=== PATIENT | male | born 1955 | race Caucasian/White ===

== ENCOUNTER → 2020-05-14 12:49 | Outpatient (BNVA) | payer OTHER, SELFPAY | PROVIDERS: PCP Nurse Practitioner Family; Referring Provider Nurse Practitioner Family; Visit Provider Dietitian, Registered | DX: Z76.89 Persons encountering health services in other specified circumstances (principal) ==

== ENCOUNTER 2020-06-02 13:20 | Outpatient (REF) | payer OTHER, SELFPAY | END 2020-06-02 13:21 | disposition home or self-care (01) | LOC: HO.RESP 13:20 | PROVIDERS: Visit Provider Hospitalist | DX: J45.909 Unspecified asthma, uncomplicated (principal) | CPT/HCPCS: 94010 ==

== ENCOUNTER → 2020-06-16 09:12 | Outpatient (BNVA) | payer OTHER, SELFPAY | PROVIDERS: Visit Provider Internal Medicine Endocrinology, Diabetes & Metabolism | DX: E11.9 Type 2 diabetes mellitus without complications (principal); I10 Essential (primary) hypertension; E78.5 Hyperlipidemia, unspecified | CPT/HCPCS: 99212 ==

== ENCOUNTER 2020-06-22 12:18 | Outpatient (REF) | payer OTHER, SELFPAY ==
[2020-06-22 14:18] LABS: Estimated Average Glucose 120 mg/dL; Hemoglobin A1c % 5.8 %
[2020-06-22 14:20] LABS: Mean Corpuscular HGB Conc 32.6 g/dl (31.0-36.0); Mean Corpuscular Hemoglobin 30.2 pg (27.0-33.0); Mean Corpuscular Volume 92.7 fL (80-98); Mean Platelet Volume 9.8 fL (9.4-12.4); Platelet Count 185 X10*3/uL (160-400); Red Blood Count 4.64 X10*6/uL (4.60-5.80); Red Cell Distribution Width 12.5 % (11.0-16.0); White Blood Count 6.3 X10*3/uL (4.8-10.8)
[2020-06-22 14:46] LABS: Alanine Aminotransferase 23 U/L (0-40); Albumin Level 4.4 g/dL (3.5-5.0); Alkaline Phosphatase 64 U/L (39-117); Anion Gap 12 (12-20); Aspartate Amino Transferase 31 U/L (5-37); Bilirubin Total 0.8 mg/dL (0.0-1.0); Blood Urea Nitrogen 15 mg/dL (9-16); Calcium 8.6 mg/dL (8.4-10.2); Carbon Dioxide 24 mmol/L (22-29); Chloride 107 mmol/L (96-108); Cholesterol 169 mg/dL; Estimated Glomerular Filt Rate > 60; Glucose Fasting 99 mg/dL (60-99); HDL Cholesterol 61 mg/dL; LDL Cholesterol Calculated 85 mg/dl; Potassium 4.2 mmol/l (3.3-5.1); Sodium 139 mmol/L (135-145); Total Protein 6.9 g/dL (6.5-8.0); Triglycerides 118 mg/dL
[2020-06-22 14:51] LABS: Creatinine Urine 235.15 mg/dL; Microalbum/Creatinine Ratio Ur 2.9 ug/mg cr
[2020-06-22 14:55] LABS: Free T4 (Free Thyroxine) 0.91 ng/dL (0.71-1.85)
[2020-06-22 15:21] LABS: Vitamin B12 605 pg/mL (200-900)
[2020-06-23 08:06] LABS: LDL Cholesterol Direct 94 mg/dL (<100)
== END 2020-06-22 12:19 | disposition home or self-care (01) ==
LOC: HO.10HDL 12:18
PROVIDERS: Visit Provider Internal Medicine Endocrinology, Diabetes & Metabolism
DX: E11.9 Type 2 diabetes mellitus without complications (principal)
CPT/HCPCS: 36415; 80053; 80061; 82043; 82607; 83036; 83721; 84439; 84443; 85027

== ENCOUNTER 2020-09-03 13:00 | Outpatient (REF) | payer OTHER, SELFPAY ==
--- NOTE | 2020-09-03 13:36 | XR_ITS ---
EXAMINATION: XR CHEST CLINICAL INFORMATION: COPD. COMPARISON: None TECHNIQUE: 2 views of the chest were obtained. FINDINGS: Minimal linear markings are seen in the right middle lobe and lingula. The upper lung almonte are clear. The heart shows coronary arterial stent anteriorly without other significant abnormality. XR/XR chest 2V IMPRESSION: No acute cardiopulmonary process.
== END 2020-09-03 13:01 | disposition home or self-care (01) ==
LOC: HO.XRAY 13:00
PROVIDERS: PCP Nurse Practitioner Family; Visit Provider Hospitalist
DX: J44.0 Chronic obstructive pulmonary disease with (acute) lower respiratory infection (principal); J45.40 Moderate persistent asthma, uncomplicated; J30.9 Allergic rhinitis, unspecified; G47.33 Obstructive sleep apnea (adult) (pediatric); Z99.89 Dependence on other enabling machines and devices
CPT/HCPCS: 71046; 99212

== ENCOUNTER → 2020-09-15 10:55 | Outpatient (BNVA) | payer OTHER, SELFPAY | PROVIDERS: PCP Nurse Practitioner Family; Visit Provider Internal Medicine Endocrinology, Diabetes & Metabolism | DX: E11.9 Type 2 diabetes mellitus without complications (principal); I10 Essential (primary) hypertension; E78.5 Hyperlipidemia, unspecified | CPT/HCPCS: 82947; 99212 ==

== ENCOUNTER → 2021-06-24 13:52 | Outpatient (BNVA) | payer OTHER, SELFPAY | PROVIDERS: PCP Nurse Practitioner Family; Visit Provider Hospitalist | DX: J44.0 Chronic obstructive pulmonary disease with (acute) lower respiratory infection (principal); G47.33 Obstructive sleep apnea (adult) (pediatric); J30.9 Allergic rhinitis, unspecified; Z99.89 Dependence on other enabling machines and devices | CPT/HCPCS: 99212 ==

== ENCOUNTER → 2021-10-04 13:55 | Outpatient (BNVA) | payer OTHER, SELFPAY | PROVIDERS: PCP Pediatrics; Visit Provider Internal Medicine Endocrinology, Diabetes & Metabolism | DX: E11.649 Type 2 diabetes mellitus with hypoglycemia without coma (principal) | CPT/HCPCS: 82947; 83036; 99212 ==

== ENCOUNTER 2021-10-18 07:51 | Outpatient (REF) | payer OTHER, SELFPAY ==
[2021-10-18 08:37] LABS: Glucose Random 113 mg/dL (60-115)
[2021-10-18 09:57] LABS: Cortisol Random < 1.0 ug/dL
== END 2021-10-18 07:52 | disposition home or self-care (01) ==
LOC: HO.LAB 07:51
PROVIDERS: PCP Pediatrics; Visit Provider Internal Medicine Endocrinology, Diabetes & Metabolism
DX: E16.2 Hypoglycemia, unspecified (principal)
CPT/HCPCS: 36415; 82533; 82947

== ENCOUNTER 2021-10-21 07:35 | Outpatient (REF) | payer OTHER, SELFPAY ==
[2021-10-23 16:06] LABS: Cortisol 30 Minute 11.5 mcg/dL; Cortisol 30 Minute Time 847; Cortisol 60 Minute 14.3 mcg/dL; Cortisol 60 Minute Time 3 915; Cortisol Baseline 2.4 mcg/dL; Cortisol Baseline Time 1 816
[2021-10-24 15:02] LABS: Adrenocorticotropic Hormone 84 pg/mL (6-50)
== END 2021-10-21 07:36 | disposition home or self-care (01) ==
LOC: HO.MDS 07:35
PROVIDERS: Visit Provider Internal Medicine Endocrinology, Diabetes & Metabolism
DX: E16.2 Hypoglycemia, unspecified (principal)
CPT/HCPCS: 36415; 82024; 82533; 96374; J0834

== ENCOUNTER 2021-10-27 07:48 | Outpatient (REF) | payer OTHER, SELFPAY ==
[2021-10-27 10:04] LABS: Cortisol Random < 1.0 ug/dL
[2021-10-28 07:01] LABS: DHEA Sulfate 10 mcg/dL (20-217)
[2021-10-31 16:01] LABS: Adrenocorticotropic Hormone 62 pg/mL (6-50)
[2021-11-02 15:07] LABS: Renin 2.93 ng/mL/h (0.25-5.82)
[2021-11-03 16:30] LABS: 21 Hydroxylase Antibody NEGATIVE (NEGATIVE)
== END 2021-10-27 07:49 | disposition home or self-care (01) ==
LOC: HO.LAB 07:48
PROVIDERS: PCP Pediatrics; Visit Provider Internal Medicine Endocrinology, Diabetes & Metabolism
DX: E27.40 Unspecified adrenocortical insufficiency (principal)
CPT/HCPCS: 36415; 82024; 82088; 82533; 82627; 83519; 84244

== ENCOUNTER 2021-11-16 07:35 | Outpatient (REF) | payer OTHER, SELFPAY ==
[2021-11-16 09:23] LABS: Anion Gap 13 (12-20); Blood Urea Nitrogen 17 mg/dL (9-16); Calcium 9.1 mg/dL (8.4-10.2); Carbon Dioxide 22 mmol/L (22-29); Chloride 110 mmol/L (96-108); Estimated Glomerular Filt Rate > 60; Glucose Random 117 mg/dL (60-115); Potassium 3.9 mmol/L (3.3-5.1); Sodium 141 mmol/L (135-145)
== END 2021-11-16 07:36 | disposition home or self-care (01) ==
LOC: HO.LAB 07:35
PROVIDERS: PCP Pediatrics; Visit Provider Internal Medicine Endocrinology, Diabetes & Metabolism
DX: E27.40 Unspecified adrenocortical insufficiency (principal)
CPT/HCPCS: 36415; 80048

== ENCOUNTER → 2021-11-18 15:01 | Outpatient (BNVA) | payer OTHER, SELFPAY | PROVIDERS: PCP Pediatrics; Visit Provider Internal Medicine Endocrinology, Diabetes & Metabolism | DX: E27.40 Unspecified adrenocortical insufficiency (principal) | CPT/HCPCS: 99212 ==

== ENCOUNTER 2021-12-01 14:05 | Outpatient (REF) | payer OTHER, SELFPAY ==
--- NOTE | ~2021-12-01 | CT_ITS ---
EXAMINATION: CT ABDOMEN WITHOUT AND WITH CONTRAST CLINICAL INFORMATION: Adrenocortical insufficiency. COMPARISON: None TECHNIQUE: Contiguous axial thin section helical images of the abdomen were performed before and after the administration of oral contrast and 85 mL of Omnipaque 350 intravenous contrast. The data set was reformatted in the coronal and sagittal planes and reviewed on an independent workstation. This CT examination was performed using dose optimization techniques as appropriate, variously including the following: *Automated exposure control *Adjustment of mA and/or kV according to patient size (this includes techniques or standardized protocols for targeted exams where dose is matched to indication/reason for exam; i.e. extremities or head) *Use of iterative reconstruction technique DLP: 548 mGy-cm FINDINGS: LUNG BASES: There is bibasilar dependent atelectasis. LIVER, GALLBLADDER, AND BILIARY TREE: The liver is normal size, contour and normal density. No focal lesions or intrahepatic ductal dilatation seen. The gallbladder appears unremarkable without any radiopaque calculi or wall thickening. PANCREAS: The pancreas is homogeneous in density and normal size. No focal lesion seen. SPLEEN: Unremarkable. ADRENAL GLANDS AND KIDNEYS: Bilateral adrenal glands normal. No focal lesion seen. Both kidney nephrograms are symmetrical with normal cortical thickening. No radiopaque calculi, enhancing renal mass or hydronephrosis seen. There is nonspecific mild perinephric stranding. BOWEL LOOPS: The small bowel loops are normal caliber. There is scattered stool seen throughout the colon without any significant distention. Appendix is normal caliber. No inflammatory process seen. LYMPH NODES: There are no abnormal retroperitoneal lymph nodes or mass. No focal lesion seen at the aortic bifurcation. VASCULAR: There is arthrosclerotic calcification of abdominal aorta without aneurysmal dilatation. BONES: There is moderate ventral spondylosis lower dorsal spine. No aggressive lytic or sclerotic process. CT/CT abdomen wo/w con IMPRESSION: Symmetrical normal-appearing adrenal glands. No retroperitoneal mass or lymphadenopathy. Fleischner guidelines were followed.
[2021-12-01] MEDS: iohexoL 350 MG/ML 100 ML INFUS..BTL IV (15:45)
== END 2021-12-01 14:06 | disposition home or self-care (01) ==
LOC: HO.CT 14:05
PROVIDERS: PCP Pediatrics; Visit Provider Internal Medicine Endocrinology, Diabetes & Metabolism
DX: E27.40 Unspecified adrenocortical insufficiency (principal)
CPT/HCPCS: 74170; Q9967

== ENCOUNTER 2022-02-23 11:21 | Outpatient (REF) | payer OTHER, SELFPAY ==
[2022-02-23 11:42] LABS: MANUAL DIFF FLAG NO
[2022-02-23 12:19] LABS: Basophils Percent Auto 0.4 % (0-2); Eosinophils Absolute Auto 0.2 X10*3/uL (0.0-0.4); Eosinophils Percent Auto 2.1 % (0-4); Hematocrit 42.8 % (42.0-52.0); Hemoglobin 13.9 g/dl (14.0-18.0); Imm Gran Abs Auto 0.04 X10*3/uL (0.00-0.03); Imm Gran Pct Auto 0.5 % (0.0-0.4); Lymphocytes Absolute Auto 2.2 X10*3/uL (1.2-4.9); Lymphocytes Percent Auto 30.5 % (20-40); Mean Corpuscular HGB Conc 32.5 g/dl (31.0-36.0); Mean Corpuscular Hemoglobin 29.6 pg (27.0-33.0); Mean Corpuscular Volume 91.3 fL (80.0-98.0); Monocytes Percent Auto 13.7 % (2-11); Neutrophils Absolute Auto 3.9 x10*3/uL (2.0-8.3); Neutrophils Percent Auto 52.8 % (45-73); Platelet Count 151 X10*3/uL (160-400); Red Blood Count 4.69 X10*6/uL (4.60-5.80); Red Cell Distribution Width 12.9 % (11.0-16.0); White Blood Count 7.3 X10*3/uL (4.8-10.8)
[2022-02-23 12:59] LABS: Erythrocyte Sedimentation Rate 4 MM/HR (0-15)
[2022-02-25 21:33] LABS: IgA 176 mg/dL (70-320); IgG 702 mg/dL (600-1540); IgM 181 mg/dL (50-300)
== END 2022-02-23 11:22 | disposition home or self-care (01) ==
LOC: HO.LAB 11:21
PROVIDERS: PCP Pediatrics; Visit Provider Hospitalist
DX: J44.0 Chronic obstructive pulmonary disease with (acute) lower respiratory infection (principal); G47.33 Obstructive sleep apnea (adult) (pediatric); J30.9 Allergic rhinitis, unspecified; Z99.89 Dependence on other enabling machines and devices
CPT/HCPCS: 36415; 82784; 82785; 85025; 85652; 86003; 99212

== ENCOUNTER → 2022-06-14 14:21 | Outpatient (BNVA) | payer OTHER, SELFPAY | PROVIDERS: PCP Pediatrics; Visit Provider Internal Medicine Endocrinology, Diabetes & Metabolism | DX: E27.40 Unspecified adrenocortical insufficiency (principal) | CPT/HCPCS: 82947; 83036; 99212 ==

== ENCOUNTER 2022-06-19 10:53 | Outpatient (REF) | payer OTHER, SELFPAY ==
[2022-06-19 13:01] LABS: Anion Gap 16 (12-20); Blood Urea Nitrogen 10 mg/dL (9-16); Calcium 9.1 mg/dL (8.4-10.2); Carbon Dioxide 23 mmol/L (22-29); Chloride 108 mmol/L (96-108); Estimated Glomerular Filt Rate > 60; Glucose Random 92 mg/dL (60-115); Potassium 4.1 mmol/L (3.3-5.1); Sodium 143 mmol/L (135-145)
[2022-06-26 06:27] LABS: Renin 0.25 ng/mL/h (0.25-5.82)
== END 2022-06-19 10:54 | disposition home or self-care (01) ==
LOC: HO.LAB 10:53
PROVIDERS: Visit Provider Internal Medicine Endocrinology, Diabetes & Metabolism
DX: E27.40 Unspecified adrenocortical insufficiency (principal)
CPT/HCPCS: 36415; 80048; 84244

== ENCOUNTER → 2022-07-04 14:03 | Outpatient (REF) | payer OTHER, SELFPAY | LOC: HO.SL 14:03 | PROVIDERS: Visit Provider Hospitalist | DX: G47.33 Obstructive sleep apnea (adult) (pediatric) (principal); Z99.89 Dependence on other enabling machines and devices | CPT/HCPCS: 95806 ==

== ENCOUNTER 2022-07-13 10:10 | Outpatient (REF) | payer OTHER, SELFPAY ==
--- NOTE | ~2022-07-13 | XR_ITS ---
EXAMINATION: XR CHEST CLINICAL INFORMATION: Dyspnea COMPARISON: 09/03/2020 TECHNIQUE: 2 views of the chest were obtained. FINDINGS: The lungs are well expanded. There is no focal consolidation, edema, or effusion. No pneumothorax. The cardiomediastinal silhouette is within normal limits. No acute osseous abnormality. Degenerative changes noted in the spine. XR/XR chest 2V IMPRESSION: No acute pulmonary finding.
== END 2022-07-13 10:11 | disposition home or self-care (01) ==
LOC: HO.XRAY 10:10
PROVIDERS: Visit Provider Hospitalist
DX: R06.00 Dyspnea, unspecified (principal); J44.0 Chronic obstructive pulmonary disease with (acute) lower respiratory infection; G47.33 Obstructive sleep apnea (adult) (pediatric); Z99.89 Dependence on other enabling machines and devices; Z87.891 Personal history of nicotine dependence
CPT/HCPCS: 71046; 99212

== ENCOUNTER 2022-07-19 07:33 | Outpatient (REF) | payer OTHER, SELFPAY ==
[2022-07-20 12:49] LABS: Adrenocorticotropic Hormone 23 pg/mL (6-50)
[2022-07-23 14:19] LABS: Cortisol 30 Minute 8.4 mcg/dL; Cortisol 60 Minute 9.7 mcg/dL; Cortisol Baseline 2.2 mcg/dL
== END 2022-07-19 07:34 | disposition home or self-care (01) ==
LOC: HO.MDS 07:33
PROVIDERS: Visit Provider Internal Medicine Endocrinology, Diabetes & Metabolism
DX: E27.40 Unspecified adrenocortical insufficiency (principal)
CPT/HCPCS: 36415; 82024; 82533; 96374; J0834

== ENCOUNTER → 2022-09-11 21:05 | Outpatient (REF) | payer OTHER, SELFPAY | LOC: HO.SL 21:05 | PROVIDERS: PCP Pediatrics; Visit Provider Hospitalist | DX: G47.33 Obstructive sleep apnea (adult) (pediatric) (principal) | CPT/HCPCS: 95810 ==

== ENCOUNTER 2022-09-15 09:32 | Outpatient (REF) | payer OTHER, SELFPAY ==
--- NOTE | ~2022-09-15 | XR_ITS ---
EXAMINATION: XR CHEST CLINICAL INFORMATION: Chest pain COMPARISON: Chest x-ray 07/13/2022 TECHNIQUE: 2 views of the chest were obtained. FINDINGS: Cardiac silhouette is normal in size. The lungs are adequately aerated. There is similar mild asymmetric elevation of the right hemidiaphragm. Subtle linear opacity of the right lung base is most suggestive of atelectasis. No pleural effusion or pneumothorax. Degenerative changes of the spine. XR/XR chest 2V IMPRESSION: Suspected right basilar atelectasis.
[2022-09-15 10:19] LABS: MANUAL DIFF FLAG NO
[2022-09-15 10:46] LABS: D Dimer High Sensitivity 784 NG/ML
[2022-09-15 10:47] LABS: Basophils Percent Auto 0.5 % (0-2); Eosinophils Absolute Auto 0.1 X10*3/uL (0.0-0.4); Eosinophils Percent Auto 1.8 % (0-4); Hematocrit 39.6 % (42.0-52.0); Hemoglobin 13.3 g/dl (14.0-18.0); Imm Gran Abs Auto 0.04 X10*3/uL (0.00-0.03); Imm Gran Pct Auto 0.6 % (0.0-0.4); Lymphocytes Absolute Auto 1.9 X10*3/uL (1.2-4.9); Lymphocytes Percent Auto 30.4 % (20-40); Mean Corpuscular HGB Conc 33.6 g/dl (31.0-36.0); Mean Corpuscular Volume 92.3 fL (80.0-98.0); Monocytes Absolute Auto 0.8 X10*3/uL (0.1-1.2); Neutrophils Absolute Auto 3.3 x10*3/uL (2.0-8.3); Neutrophils Percent Auto 53.7 % (45-73); Platelet Count 121 X10*3/uL (160-400); Red Blood Count 4.29 X10*6/uL (4.60-5.80); Red Cell Distribution Width 13.2 % (11.0-16.0); White Blood Count 6.2 X10*3/uL (4.8-10.8)
[2022-09-15 11:02] LABS: Anion Gap 14 (12-20); Blood Urea Nitrogen 15 mg/dL (9-16); Carbon Dioxide 21 mmol/L (22-29); Chloride 112 mmol/L (96-108); Estimated Glomerular Filt Rate > 60; Glucose Random 100 mg/dL (60-115); Potassium 3.7 mmol/L (3.3-5.1); Sodium 143 mmol/L (135-145)
[2022-09-15 11:28] LABS: Erythrocyte Sedimentation Rate 7 MM/HR (0-15)
== END 2022-09-15 09:33 | disposition home or self-care (01) ==
LOC: HO.LAB 09:32
PROVIDERS: PCP Pediatrics; Visit Provider Hospitalist
DX: G47.33 Obstructive sleep apnea (adult) (pediatric) (principal); R06.00 Dyspnea, unspecified; R07.9 Chest pain, unspecified; J45.909 Unspecified asthma, uncomplicated; Z99.89 Dependence on other enabling machines and devices; R78.89 Finding of other specified substances, not normally found in blood
CPT/HCPCS: 36415; 71046; 80048; 84484; 85025; 85379; 85652; 99212

== ENCOUNTER 2022-09-19 13:25 | Outpatient (REF) | payer OTHER, SELFPAY ==
--- NOTE | ~2022-09-19 | CT_ITS ---
EXAMINATION: CT ANGIOGRAM OF THE CHEST WITH AND WITHOUT CONTRAST (CT PULMONARY ANGIOGRAM FOR PE) CLINICAL INFORMATION: Reason for Exam R07.9 - Chest pain, unspecified COMPARISON: None TECHNIQUE: Prior to contrast administration, noncontrast localization images were obtained. Subsequently, multidetector volumetric imaging was performed from the thoracic inlet to below the diaphragms following the administration of 65 mL Omnipaque 350 intravenous contrast. No contrast reaction reported Sagittal, coronal, and MIP oblique sagittal reformatted images were obtained on the CT workstation, uploaded to PACS, and reviewed. This CT examination was performed using dose optimization techniques as appropriate, variously including the following: *Automated exposure control *Adjustment of mA and/or kV according to patient size (this includes techniques or standardized protocols for targeted exams where dose is matched to indication/reason for exam; i.e. extremities or head) *Use of iterative reconstruction technique Total exam dose-length product 140 mGy-cm FINDINGS: QUALITY OF STUDY/CONTRAST BOLUS: Satisfactory. PULMONARY ARTERIES: No central or segmental pulmonary emboli. THORACIC AORTA: No aneurysm or dissection. There is nonocclusive calcified plaque within the aortic arch. LUNG: Central airways are patent. No significant bronchial wall thickening is seen. No bronchiectasis. There are moderate changes of centrilobular and paraseptal emphysema seen bilaterally. No confluent parenchymal disease is seen. There are some scattered regions of linear scar present. No suspicious lung masses appreciated. PLEURA: No pleural effusion or pneumothorax. MEDIASTINUM: Normal heart size. No pericardial effusion. No hilar or mediastinal lymphadenopathy. No evidence of septal bowing or right heart strain. CORONARY ARTERY CALCIFICATION: Present CHEST WALL/AXILLA: No axillary or internal mammary lymphadenopathy. OSSEOUS STRUCTURES: No acute or suspicious osseous abnormality. There is a sclerotic bone island seen posterior right seventh rib. UPPER ABDOMEN: Unremarkable. No reflux of contrast into the hepatic veins to suggest elevated right heart pressures. CT/CT angio chest PE protocol IMPRESSION: No evidence of acute pulmonary artery embolus. No evidence of thoracic aortic aneurysm or dissection. Emphysematous change. VTE: negative
[2022-09-19] MEDS: iohexoL 350 MG/ML 100 ML INFUS..BTL IV (14:02)
== END 2022-09-19 13:26 | disposition home or self-care (01) ==
LOC: HO.CT 13:25
PROVIDERS: PCP Pediatrics; Visit Provider Hospitalist
DX: R07.9 Chest pain, unspecified (principal); R06.00 Dyspnea, unspecified; R78.89 Finding of other specified substances, not normally found in blood
CPT/HCPCS: 71275; Q9967

== ENCOUNTER → 2022-10-26 13:10 | Outpatient (BNVA) | payer OTHER, SELFPAY | PROVIDERS: PCP Pediatrics; Visit Provider Internal Medicine Endocrinology, Diabetes & Metabolism | DX: E27.40 Unspecified adrenocortical insufficiency (principal) | CPT/HCPCS: 99212 ==

== ENCOUNTER → 2022-12-04 09:39 | Outpatient (BNVA) | payer OTHER, SELFPAY | PROVIDERS: PCP Pediatrics; Visit Provider Hospitalist | DX: J44.0 Chronic obstructive pulmonary disease with (acute) lower respiratory infection (principal); J45.40 Moderate persistent asthma, uncomplicated; G47.33 Obstructive sleep apnea (adult) (pediatric); R06.00 Dyspnea, unspecified; R07.89 Other chest pain; E27.40 Unspecified adrenocortical insufficiency; I82.409 Acute embolism and thrombosis of unspecified deep veins of unspecified lower extremity; Z99.89 Dependence on other enabling machines and devices | CPT/HCPCS: 99212 ==

== ENCOUNTER 2023-05-01 12:48 | Outpatient (AMB) | payer OTHER, SELFPAY ==
[2023-05-01 12:50] VITALS: BP 104/80; PULSE 77; BMI 31.2
--- NOTE | 2023-05-01 12:50 | A.OFFVIS_ITS ---
Intake Vital Signs 05/01/23 12:50 Height 5 ft 6 in Weight 193 lb 9.054 oz BMI 31.2 BP 104/80 Blood Pressure Location Lt brachial Position Sitting Pulse 77 Pulse Source Pulse Oximeter Intake Visit Reasons: f/u adrenal insuffiency/Confirmed Intake Note: Patient present today for Adrenal insufficiency. Upper Doubler Required: Yes Upper Doubler Language: Moroccan Accompanied by: Self / Same As Patient Allergies ibuprofen Allergy (Mild, Verified 05/01/23 12:55) Rash penicillin V Allergy (Mild, Verified 05/01/23 12:55) Rash Medication List - Last Reconciled 05/01/23 by Pepe Marshall MD albuterol sulfate 2.5 mg (3 mL) inhalation Q6H PRN albuterol sulfate 90 mcg/actuation 2 puffs PO Q6H PRN apixaban (Eliquis) 5 mg PO BID aspirin (Adult Aspirin Regimen) 81 mg PO DAILY blood sugar diagnostic (FreeStyle Lite Strips) 1 strip miscellaneous BID 90 days blood-glucose meter (Freestyle InsuLinx meter) As directed budesonide-formoterol 160-4.5 mcg/actuation (Symbicort) 2 puffs inhalation BID 30 days buwjuxxihs-rfiaqcgc-iqqtdwqefi 160-9-4.8 mcg/actuation (Breztri Aerosphere) inha lations inhalation cholecalciferol (vitamin D3) (Vitamin D3) 25 mcg PO DAILY CPAP (CPAP Machine/Device) As directed diclofenac sodium 1% grams topical diphenhydramine HCl (Banophen) 25 mg PO Q4H PRN fludrocortisone 0.1 mg PO DAILY fluticasone propionate 110 mcg/actuation 2 puffs PO BID fluticasone propionate 50 mcg/actuation 2 sprays intranasal DAILY 30 days hydrocortisone orally; 2 tablets in the morning 1 tablet in the evening hydrocortisone sod succ (PF) (Solu-Cortef Act-O-Vial (PF)) 100 mg (2 mL) IM DAILY ipratropium bromide 2 sprays intranasal TID PRN lancets (Accu-Chek Fastclix Lancet Drum) As directed twice daily lancets (FreeStyle Lancets) As directed 2 times a day loratadine (Claritin) 10 mg PO DAILY 90 days lorazepam 0.5 mg PO BID PRN montelukast 10 mg PO BEDTIME omeprazole 20 mg PO DAILY prednisone PO daily; Take 2 tabs daily x 5 days, then 1 tablet daily x 5 days 10 days rosuvastatin 10 mg PO BEDTIME sertraline 100 mg PO DAILY simethicone (Gas Relief (simethicone)) 0 mg PO tamsulosin 0.4 mg PO DAILY tramadol 50 mg PO BID PRN umeclidinium 62.5 mcg/actuation (Incruse Ellipta) 1 inh inhalation DAILY 30 days vitamin B complex 1 cap PO BEDTIME HPI HPI Comments History of Present Illness Details 67 yo male today for fup visit, for primary adrenal insufficency He is feeling well, he has no complaints. More recently, he was diagnosed with primary adrenal insufficiency. He was placed on hydrocortisone 10 mg in the a.m. and 5 mg in the p.m. as well as fludrocortisone 0.1 mg q.d.. No symptoms of adrenal insufficiency except for fatigue Rece Cortrosyn stimulation test continues to show sub maximal cortisol levels Laboratory Tests 10/09/18 10/09/18 10/09/18 08:20 08:20 08:20 Hgb Hct Sodium Potassium BUN Creatinine Estimated GFR Fasting Glucose 103 H Estimat Average Gl ucose Hgb A1c Fingerstic k Hemoglobin A1c % Calcium AST ALT Alkaline Phosphata se Albumin Triglycerides Cholesterol LDL Cholesterol Di rect LDL Cholesterol, C alc HDL Cholesterol Vitamin B12 284 25-OH Vitamin D To mis 29.8 TSH Free T4 Ur Random Creatini ne 189.46 Ur Random Microalb umin < 5.0 Urine Creatinine Urine Microalbumin Microalb/Creat Rat io TNP 06/20/19 06/23/19 06/23/19 12:33 10:45 10:45 Hgb Hct Sodium Potassium BUN Creatinine Estimated GFR Fasting Glucose Estimat Average Gl ucose Hgb A1c Fingerstic k 6.3 Hemoglobin A1c % Calcium AST ALT Alkaline Phosphata se Albumin Triglycerides 125 Cholesterol 156 LDL Cholesterol Di rect 88 LDL Cholesterol, C alc 74 HDL Cholesterol 57 Vitamin B12 25-OH Vitamin D To mis TSH Free T4 Ur Random Creatini ne Ur Random Microalb umin Urine Creatinine Urine Microalbumin Microalb/Creat Rat io 10/09/19 10/09/19 06/22/20 14:45 14:45 12:30 Hgb 14.4 14.0 Hct 41.8 L 43.0 Sodium 139 Potassium 4.2 BUN 13 Creatinine 1.07 Estimated GFR Fasting Glucose Estimat Average Gl ucose Hgb A1c Fingerstic k Hemoglobin A1c % Calcium 9.3 AST ALT Alkaline Phosphata se Albumin Triglycerides Cholesterol LDL Cholesterol Di rect LDL Cholesterol, C alc HDL Cholesterol Vitamin B12 25-OH Vitamin D To mis TSH Free T4 Ur Random Creatini ne Ur Random Microalb umin Urine Creatinine Urine Microalbumin Microalb/Creat Rat io 06/22/20 06/22/20 06/22/20 12:30 12:30 12:30 Hgb Hct Sodium 139 Potassium 4.2 BUN 15 Creatinine 1.16 Estimated GFR > 60 Fasting Glucose Estimat Average Gl ucose 120 Hgb A1c Fingerstic k Hemoglobin A1c % 5.8 Calcium 8.6 AST 31 ALT 23 Alkaline Phosphata se 64 Albumin 4.4 Triglycerides 118 Cholesterol 169 LDL Cholesterol Di rect 94 LDL Cholesterol, C alc 85 HDL Cholesterol 61 Vitamin B12 25-OH Vitamin D To mis TSH 2.20 Free T4 0.91 Ur Random Creatini ne Ur Random Microalb umin Urine Creatinine Urine Microalbumin Microalb/Creat Rat io 06/22/20 06/22/20 12:30 12:30 Hgb Hct Sodium Potassium BUN Creatinine Estimated GFR Fasting Glucose Estimat Average Gl ucose Hgb A1c Fingerstic k Hemoglobin A1c % Calcium AST ALT Alkaline Phosphata se Albumin Triglycerides Cholesterol LDL Cholesterol Di rect LDL Cholesterol, C alc HDL Cholesterol Vitamin B12 605 25-OH Vitamin D To mis TSH Free T4 Ur Random Creatini ne Ur Random Microalb umin Urine Creatinine 235.15 Urine Microalbumin 7.0 Microalb/Creat Rat io 2.9 No sx of adrenal insuffiency or Luigi's . Having a workup for SOB on exertion [facility] Medical History (Updated 12/04/22 @ 10:03 by Geo Martinez MD) DVT (deep venous thrombosis) Adrenal insufficiency Chest discomfort Dyspnea EDUARDO (obstructive sleep apnea) Adrenal cortex hypofunction Hypoglycemia Depression COPD (chronic obstructive pulmonary disease) Dyslipidemia Hypertension CAD (coronary artery disease) Diabetes type 2, controlled Chronic allergic rhinitis EDUARDO on CPAP Asthma Surgical History History of back surgery Hx of percutaneous transluminal coronary angioplasty Family History Father Asthma Mother Heart disease Diabetes Social History Household Members: Spouse Household Members Other:: Alcohol intake: current Alcohol intake frequency: does not drink Patient Tobacco Use Status: Former Tobacco user Quit Date: Over 14 years ago Years Smoked: 34 years Physical Exam Vital Signs: Last Vital Signs Pulse 77 05/01/23 12:50 BP 104/80 05/01/23 12:50 BMI result Body Mass Index 31.2 Assessment & Plan Assessment & Plan (1) Adrenal cortex hypofunction: Code(s): E27.40 - Unspecified adrenocortical insufficiency Plan: This 67-year-old male with a history of primary adrenal insufficiency currently being treated with hydrocortisone 10 mg and 5 mg in the afternoon and fludrocortisone 0.1 mg q.d. The plan is to continue the current regimen. Will check basic metabolic panel and renin level and adjust fludrocortisone accordingly Orders: Orders Basic Metabolic Panel Today E27.40 - Unspecified adrenocortical insufficiency Renin Today E27.40 - Unspecified adrenocortical insufficiency Coding Level of Care Code Est Pt Level 3 (57192) Diagnoses Adrenal cortex hypofunction E27.40
== END 2023-05-01 15:54 | disposition home or self-care (01) ==
PROVIDERS: PCP Pediatrics; Visit Provider Internal Medicine Endocrinology, Diabetes & Metabolism
DX: E27.40 Unspecified adrenocortical insufficiency (principal)
CPT/HCPCS: 99213

== ENCOUNTER → 2023-05-01 12:48 | Outpatient (BNVA) | payer OTHER, SELFPAY | PROVIDERS: Visit Provider Internal Medicine Endocrinology, Diabetes & Metabolism | DX: E27.40 Unspecified adrenocortical insufficiency (principal) | CPT/HCPCS: 99212 ==

== ENCOUNTER 2023-11-13 10:04 | Outpatient (AMB) | payer OTHER, SELFPAY ==
[2023-11-13 10:09] VITALS: PULSE 62; O2SAT 97
--- NOTE | 2023-11-13 10:09 | MHC.OFFVIS ---
Intake Vital Signs 11/13/23 10:09 Height 5 ft 6 in Weight 186 lb BMI 30.0 Pulse 62 Pulse Source Pulse Oximeter Pulse Oximetry (%) 97 Oxygen Delivery Method Room Air Intake Visit Reasons: COPD Medical Claims Representative Required: No Allergies ibuprofen Allergy (Mild, Verified 11/13/23 10:10) Rash penicillin V Allergy (Mild, Verified 11/13/23 10:10) Rash HPI HPI Comments History of Present Illness Details Patient is a 67-year-old gentleman known moderate persistent asthma and EDUARDO on CPAP. He had been controlled on his respiratory medications and his nebulizer, but, he ran out of the medications. He did not have any follow-ups. He has been having worsening shortness of breath and wheezing. He has been waking up short of breath and coughing at nighttime. He has been noticing significant nasal congestion and cough as well. He has been developing increasing shortness of breath due to the chest tightness. Overall he is doing well with his current respiratory regimen increasing Symbicort and ProAir. He did also respond very nicely to the Claritin. He has significant allergies at this time. 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 Otherwise he is doing well. Does have coughing at times intermittently. Has not had to use his rescue inhaler more than twice a week. She was 04/25/2021 the patient is here for pulmonary follow-up visit. He has been having worsening respiratory symptoms. Has been having shortness of breath and chest tightness moderate severity. Also congestion in the chest area with increased mucus production. This has been the case specially since he has not been able to get his maintenance medication. He has responded well to Symbicort in the past. Therefore, will plan to send this SIRENA for him to be able to start respite respiratory therapy. 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 He continues uses CPAP. The CPAP therapy continues to be affecting beneficial. He does use it for more than 4 hours a night. He still waiting to get new supplies as he is waiting for the new mask F30 2 in that is waiting for his [employer] company to approve. 02/23/2022 the patient is here for a pulmonary follow-up visit. Overall he is doing well from a respiratory status. He feels that his respiratory symptoms have dramatically improved after he was diagnosed with adrenal insufficiency and started on therapy. He is now off the Trelegy as he was causing her to have adverse effects and is tolerating just the Flovent just as well. His hoarseness is better. He does have significant nasal congestion. Typically in the morning. We talked about the importance of nasal rinsing prior to putting on the CPAP. Also, having get some allergy testing to address any other allergic reactions. He recently was stung by bee and resulted in significant amount of inflammation. The patient's CPAP therapy has been affecting beneficial. He has been tolerating the therapy well. The F 30 mask has been very comfortable for him. His DME company will have to change due to contracture agreements with his insurance company. 07/13/2022 the patient is here for pulmonary follow-up visit. He complains of worsening dyspnea on exertion. Moderate severity. Mainly with activity. Has been a Symbicort initially. Although, looking at his inhalers he is only taking Flovent in a rescue inhaler. She the rescue inhaler does help him. We did go for brief walking oximetry in the patient did have some difficulty with restlessness and appear to have some audible wheezing. The patient also has been using his CPAP. The CPAP therapy continues to be affecting beneficial. He does use it for more than 4 hours a night. He did have to switch DME companies because of contracture agreements with his insurance company. They did require a repeat sleep study. He did have a home sleep study. Demonstrated an AHI of 2.5 which is not significant. Although at this point I do believe the patient has significant sleep apnea and I do not believe that test was accurate. Therefore the patient will require in-lab study to further address the question of sleep apnea in continue to uses CPAP. The patient will go undergo a chest x-ray and we will try him on Breztri. The the patient already has hoarseness and he does not tolerate powdered inhalers. Will have the patient return after his sleep study. 09/15/2022 the patient is here for a pulmonary follow-up visit. The patient has been having worsening chest tightness and shortness of breath. He has been using the Symbicort twice a day with partial resolution of the symptoms. He also has been using his rescue medication through the nebulizer. He does need a rescue inhaler. The patient also has been using the CPAP. He the CPAP therapy continues to be very affecting beneficial for him. He does have a fullface mask and unfortunately the head gear is broken. He uses the F 30. Unfortunately I do not have want to give him. He does have tape with right now. He did have a sleep study. Waiting for the results. Once the patient gets active with the [employer] company will start getting supplies for his CPAP. The patient does need to continue with PAP therapy at this time. He is also describing some dyspnea and chest pressure on exertion. Explained to him that this may be related to his underlying asthma although we need to consider other etiologies including cardiac or pulmonary vascular conditions. He did have a cardiac stress echo test done about 2 years ago that was reassuring. He denies ever having blood clots. In view of the symptoms I did have him do a brief walking oximetry in his oxygen did drop to the mid 90s. Therefore, have him get some blood work including a D-dimer and also a chest x-ray. If the D-dimer comes back positive the new need a CTA to rule out thromboembolic disease. 12/04/2022 the patient is here for pulmonary follow-up visit. Since we last spoke he did have a CTA that was negative for any pulmonary emboli although his lower extremity Dopplers ordered by his primary care was positive for DVT. He has been on anticoagulation. In the meantime his breathing has improved since being on the anticoagulation which is reassuring. The patient also did get his new APAP. The rest med [employer] 11 is working very well for him. His AHI is down to 0.1. He is using more than 4 hours a night. Typically averaging between 6-7. I did increase the pressure some from 5 cm to 6 cm the minimum pressure and change them maximum pressure to 14 cm. He is tolerating well the therapy has been affecting beneficial. He is also using his inhalers as prescribed. No exacerbations. Has not had to use his rescue inhaler. We did review his CTA no evidence of any pulmonary nodules which is reassuring. He does have moderate degree of emphysema and also has some minimal basilar peripheral scarring. 11/13/2023 the patient is here for a pulmonary follow-up visit. Overall the patient has been doing well. He is status post CABG x3 back in the fall 2022. The surgery went well. He is recovering well from a respiratory status. Also from a cardiac status. He does continue to use his CPAP. CPAP therapy continues to be affecting beneficial. His pressures at the same. He continues to get supplies readily. Patient has a relatively new machine. In addition to that has been using his inhaler therapy. He needs to get refills. I will send him to the pharmacy. He is complaining of increasing allergy symptoms nasal congestion. He did respond to Zyrtec. Will go ahead and send him Astelin nasal spray to see this provides him with some more direct intervention to his nasal passages. Patient understands has a bad taste any has to use it a certain way. In addition to that he had a CT scan of the chest at [facility] back in May 2023 which we personally reviewed. He does have multiple pulmonary nodules 1 that is measuring about 4 mm in size. Has a subsolid component. The patient does need a follow-up sometime in the fall 2023. He will follow-up with me sometime after that CT scan. If the patient has any worsening issues prior to that he will call for an earlier assessment. [facility] Medical History (Updated 11/13/23 @ 21:07 by Geo Martinez MD) Pulmonary nodule DVT (deep venous thrombosis) Adrenal insufficiency Chest discomfort Dyspnea EDUARDO (obstructive sleep apnea) Adrenal cortex hypofunction Hypoglycemia Depression COPD (chronic obstructive pulmonary disease) Dyslipidemia Hypertension CAD (coronary artery disease) Diabetes type 2, controlled Chronic allergic rhinitis EDUARDO on CPAP Asthma Surgical History History of back surgery Hx of percutaneous transluminal coronary angioplasty Family History Father Asthma Mother Heart disease Diabetes Social History Household Members: Spouse Household Members Other:: Alcohol intake: current Alcohol intake frequency: does not drink Patient Tobacco Use Status: Former Tobacco user Quit Date: Over 14 years ago Years Smoked: 34 years Review of Systems Const Denies night sweats ENT Denies change in voice, Denies lip swelling, Denies mouth pain, Reports nasal congestion, Reports nasal discharge and Denies tongue swelling Card Denies chest pain, Denies dyspnea and Reports dyspnea on exertion Resp Denies chest congestion, Reports cough, Denies dyspnea, Reports dyspnea on exertion and Denies wheezing GI Denies abdominal pain Musc Denies no additional complaints Neuro Denies Neuro-related abnormal movements Psych Denies no additional complaints Kenny/Lymph Denies easy bleeding and Denies lymphadenopathy Aller/Immun Denies lip swelling, Denies tongue swelling and Denies wheezing Physical Exam Vital Signs: Last Vital Signs Pulse 62 11/13/23 10:09 Pulse Ox 97 11/13/23 10:09 Oxygen Delivery Method Room Air 11/13/23 10:09 BMI result Body Mass Index 30.0 Const General: alert HEENT General nose exam: Abnormal external nose present and Nasal discharge present Eyes Pupils: Equal, round and reactive pupils present Neck Neck: Yes normal visual inspection, Yes full ROM and Yes no lymphadenopathy Chest Chest palpation & inspection: normal inspection of the chest Resp Effort & Inspection: normal respiratory effort Auscultation: no wheezes and diminished lung sounds Cardio Rate: regular rate Rhythm: regular rhythm Heart sounds: S1 normal heart sound present and S2 normal heart sound present GI Palpation (GI): Soft to palpation and nontender Auscultation: normal bowel sounds General: Yes no CVA tenderness Back/Spine/Pelvis Back: no CVA tenderness Skin General skin exam: rashes and/or lesions noted Neuro Cranial nerves: Yes Equal, round and reactive pupils present Assessment & Plan Assessment & Plan (1) COPD (chronic obstructive pulmonary disease): Code(s): J44.9 - Chronic obstructive pulmonary disease, unspecified Qualifiers: COPD type: COPD with acute lower respiratory infection Qualified Code(s): J44.0 - Chronic obstructive pulmonary disease with (acute) lower respiratory infection Plan: Start Symbicort Continue Singulair Prednisone taper and abx (2) EDUARDO on CPAP: Code(s): G47.33 - Obstructive sleep apnea (adult) (pediatric); Z99.89 - Dependence on other enabling machines and devices Plan: conitnue CPAP therapy (3) Chronic allergic rhinitis: Code(s): J30.9 - Allergic rhinitis, unspecified Plan: anti histamine therapy (4) Dyspnea: Code(s): R06.00 - Dyspnea, unspecified Qualifiers: Dyspnea type: dyspnea on exertion Qualified Code(s): R06.09 - Other forms of dyspnea (5) Adrenal insufficiency: Code(s): E27.40 - Unspecified adrenocortical insufficiency Plan continue Symbicort continue Incruse THEO as needed Continue APAP nightly, adjusted pressures 6-14. Doing very well nasal rinsing start astelin nasal spray fluticasone nasal spray in the morning ipratropium nasal spray as needed CT chest Jun 2024 follow-up in 8-12 months Orders: Orders CT chest wo IV con 06/09/24 R91.1 - Solitary pulmonary nodule Medications: New azelastine administer into each nostril 2 sprays intranasal BID 30 days 30 mL 6RF Coding Level of Care Code Est Pt Level 4 (77353) Diagnoses Chronic obstructive pulmonary disease with acute lower respiratory infection J44.0 COPD type: COPD with acute lower respiratory infection EDUARDO on CPAP G47.33; Z99.89 Chronic allergic rhinitis J30.9 Dyspnea on exertion R06.09 Dyspnea type: dyspnea on exertion Adrenal insufficiency E27.40 Time Spent (min) 17
== END 2023-11-13 10:35 | disposition home or self-care (01) ==
PROVIDERS: PCP Pediatrics; Visit Provider Hospitalist
DX: J44.0 Chronic obstructive pulmonary disease with (acute) lower respiratory infection (principal); G47.33 Obstructive sleep apnea (adult) (pediatric); Z99.89 Dependence on other enabling machines and devices; J30.9 Allergic rhinitis, unspecified; R06.09 Other forms of dyspnea; E27.40 Unspecified adrenocortical insufficiency
CPT/HCPCS: 99214

== ENCOUNTER → 2023-11-13 10:04 | Outpatient (BNVA) | payer OTHER, SELFPAY | PROVIDERS: PCP Pediatrics; Visit Provider Hospitalist | DX: J44.0 Chronic obstructive pulmonary disease with (acute) lower respiratory infection (principal); J30.9 Allergic rhinitis, unspecified; G47.33 Obstructive sleep apnea (adult) (pediatric); Z99.89 Dependence on other enabling machines and devices; R06.09 Other forms of dyspnea; E27.40 Unspecified adrenocortical insufficiency | CPT/HCPCS: 99212 ==

== ENCOUNTER 2024-06-27 13:17 | Outpatient (REF) | payer OTHER, SELFPAY ==
--- NOTE | ~2024-06-27 | CT_ITS ---
EXAMINATION: CT CHEST WITHOUT CONTRAST CLINICAL INFORMATION: Solitary pulmonary nodule. COMPARISON: CT angiogram chest dated September 19, 2022. TECHNIQUE: Multidetector volumetric CT imaging of the chest was done. Axial MIP volume rendering provided. Sagittal and coronal reformatted images were obtained. This CT examination was performed using dose optimization techniques as appropriate, variously including the following: *Automated exposure control *Adjustment of mA and/or kV according to patient size (this includes techniques or standardized protocols for targeted exams where dose is matched to indication/reason for exam; i.e. extremities or head) *Use of iterative reconstruction technique DLP: 160 mGy-cm FINDINGS: Submitted for interpretation on July 15, 2024. There is a patchy pulmonary groundglass in the periphery of the lungs more conspicuous in the lower lung lobes. No gross consolidation, pleural effusion or pneumothorax. 2 mm calcified pulmonary nodules in the periphery of the right upper lobe and left lung base/lower lobe. No bronchiectasis. No honeycombing. Centrilobular and paraseptal emphysematous changes, both upper lobes. Respiratory airways patent. No gross lymphadenopathy, mediastinum or axillary. Sternal wires. Calcified plaques in the coronary arteries and thoracic aorta. Calcified plaques in the origin of the main branches of the thoracic aortic arch. No aneurysm, thoracic aorta. No gross pericardial effusion. Small hiatal hernia. Multilevel cervical thoracic scoliosis. No acute fracture or gross listhesis. Osteopenia versus osteoporosis. Old traumatic deformity and callus formation in the mid sternum. Calcified plaques in the included abdominal aorta the origin of the mesenteric arteries. CT/CT chest wo IV con IMPRESSION: No acute airspace disease. Emphysema. Granulomata, right upper and left lower lobe. Coronary artery disease and atherosclerosis disease. Status post CABG. Multilevel spondylosis. Fleischner guidelines were followed. Electronically signed by: Max Randhawa MD 07/15/2024 01:59 PM EST
== END 2024-06-27 13:18 | disposition home or self-care (01) ==
LOC: HO.CT 13:17
PROVIDERS: PCP Family Medicine; Visit Provider Hospitalist
DX: R91.1 Solitary pulmonary nodule (principal)
CPT/HCPCS: 71250

== ENCOUNTER → 2024-06-27 13:18 | Outpatient (BNV) | payer OTHER, SELFPAY | PROVIDERS: PCP Family Medicine; Visit Provider Radiology Diagnostic Radiology | DX: R91.1 Solitary pulmonary nodule (principal) | CPT/HCPCS: 71250 ==

== ENCOUNTER 2024-07-15 10:56 | Outpatient (AMB) | payer OTHER, SELFPAY ==
[2024-07-15 10:57] VITALS: BP 136/68; PULSE 60; O2SAT 96
--- NOTE | 2024-07-15 10:57 | A.OFFVIS_ITS ---
Vital Signs 07/15/24 10:57 Weight 186 lb 4.65 oz BP 136/68 Blood Pressure Location Rt brachial Position Sitting Pulse 60 Pulse Source Pulse Oximeter Pulse Oximetry (%) 96 Oxygen Delivery Method Room Air Intake Visit Reasons: COPD/CT Follow Up Allergies ibuprofen Allergy (Mild, Verified 07/15/24 11:01) Rash penicillin V Allergy (Mild, Verified 07/15/24 11:01) Rash Medication List - Last Reconciled 07/15/24 by Madeleine Schaefer LPN albuterol sulfate 2.5 mg (3 mL) inhalation Q6H PRN albuterol sulfate 90 mcg/actuation 2 puffs PO Q6H PRN 30 days apixaban (Eliquis) 5 mg PO BID aspirin (Adult Aspirin Regimen) 81 mg PO DAILY azelastine 2 sprays intranasal BID 30 days blood sugar diagnostic (FreeStyle Lite Strips) 1 strip miscellaneous BID 90 days blood-glucose meter (Freestyle InsuLinx meter) As directed byzywpeflu-pggqogey-qsoyclqfbf 160-9-4.8 mcg/actuation (Breztri Aerosphere) inhalations inhalation cholecalciferol (vitamin D3) (Vitamin D3) 25 mcg PO DAILY CPAP (CPAP Machine/Device) As directed diclofenac sodium 1% grams topical diphenhydramine HCl (Banophen) 25 mg PO Q4H PRN fludrocortisone 0.1 mg PO DAILY fluticasone propionate 50 mcg/actuation 2 sprays intranasal DAILY 30 days hydrocortisone orally; 2 tablets in the morning 1 tablet in the evening hydrocortisone sod succ (PF) (Solu-Cortef Act-O-Vial (PF)) 100 mg (2 mL) IM DAILY ipratropium bromide 2 sprays intranasal TID PRN lancets (Accu-Chek Fastclix Lancet Drum) As directed twice daily lancets (FreeStyle Lancets) As directed 2 times a day lorazepam 0.5 mg PO BID PRN montelukast 10 mg PO BEDTIME nebulizers As directed omeprazole 20 mg PO DAILY rosuvastatin 10 mg PO BEDTIME sertraline 100 mg PO DAILY simethicone (Gas Relief (simethicone)) 0 mg PO tamsulosin 0.4 mg PO DAILY HPI Comments Details: Patient is a 68-year-old gentleman known moderate persistent asthma and EDUARDO on CPAP. He had been controlled on his respiratory medications and his nebulizer, but, he ran out of the medications. He did not have any follow-ups. He has been having worsening shortness of breath and wheezing. He has been waking up short of breath and coughing at nighttime. He has been noticing significant nasal congestion and cough as well. He has been developing increasing shortness of breath due to the chest tightness. Overall he is doing well with his current respiratory regimen increasing Symbicort and ProAir. He did also respond very nicely to the Claritin. He has significant allergies at this time. 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 Otherwise he is doing well. Does have coughing at times intermittently. Has not had to use his rescue inhaler more than twice a week. She was 04/25/2021 the patient is here for pulmonary follow-up visit. He has be en having worsening respiratory symptoms. Has been having shortness of breath and chest tightness moderate severity. Also congestion in the chest area with increased mucus production. This has been the case specially since he has not been able to get his maintenance medication. He has responded well to Symbicort in the past. Therefore, will plan to send this SIRENA for him to be able to start respite respiratory therapy. 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 He continues uses CPAP. The CPAP therapy continues to be affecting beneficial. He does use it for more than 4 hours a night. He still waiting to get new supplies as he is waiting for the new mask F30 2 in that is waiting for his [employer] company to approve. 02/23/2022 the patient is here for a pulmonary follow-up visit. Overall he is doing well from a respiratory status. He feels that his respiratory symptoms have dramatically improved after he was diagnosed with adrenal insufficiency and started on therapy. He is now off the Trelegy as he was causing her to have adverse effects and is tolerating just the Flovent just as well. His hoarseness is better. He does have significant nasal congestion. Typically in the morning. We talked about the importance of nasal rinsing prior to putting on the CPAP. Also, having get some allergy testing to address any other allergic reactions. He recently was stung by bee and resulted in significant amount of inflammation. The patient's CPAP therapy has been affecting beneficial. He has been tolerating the therapy well. The F 30 mask has been very comfortable for him. His DME company will have to change due to contracture agreements with his insurance company. 07/13/2022 the patient is here for pulmonary follow-up visit. He complains of worsening dyspnea on exertion. Moderate severity. Mainly with activity. Has been a Symbicort initially. Although, looking at his inhalers he is only taking Flovent in a rescue inhaler. She the rescue inhaler does help him. We did go for brief walking oximetry in the patient did have some difficulty with restlessness and appear to have some audible wheezing. The patient also has been using his CPAP. The CPAP therapy continues to be affecting beneficial. He does use it for more than 4 hours a night. He did have to switch DME companies because of contracture agreements with his insurance company. They did require a repeat sleep study. He did have a home sleep study. Demonstrated an AHI of 2.5 which is not significant. Although at this point I do believe the patient has significant sleep apnea and I do not believe that test was accurate. Therefore the patient will require in-lab study to further address the question of sleep apnea in continue to uses CPAP. The patient will go undergo a chest x- ray and we will try him on Breztri. The the patient already has hoarseness and he does not tolerate powdered inhalers. Will have the patient return after his sleep study. 09/15/2022 the patient is here for a pulmonary follow-up visit. The patient has been having worsening chest tightness and shortness of breath. He has been using the Symbicort twice a day with partial resolution of the symptoms. He also has been using his rescue medication through the nebulizer. He does need a rescue inhaler. The patient also has been using the CPAP. He the CPAP therapy continues to be very affecting beneficial for him. He does have a fullface mask and unfortunately the head gear is broken. He uses the F 30. Unfortunately I do not have want to give him. He does have tape with right now. He did have a sleep study. Waiting for the results. Once the patient gets active with the [employer] company will start getting supplies for his CPAP. The patient does need to continue with PAP therapy at this time. He is also describing some dyspnea and chest pressure on exertion. Explained to him that this may be related to his underlying asthma although we need to consider other etiologies including cardiac or pulmonary vascular conditions. He did have a cardiac stress echo test done about 2 years ago that was reassuring. He denies ever having blood clots. In view of the symptoms I did have him do a brief walking oximetry in his oxygen did drop to the mid 90s. Therefore, have him get some blood work including a D-dimer and also a chest x-ray. If the D-dimer comes back positive the new need a CTA to rule out thromboembolic disease. 12/04/2022 the patient is here for pulmonary follow-up visit. Since we last spoke he did have a CTA that was negative for any pulmonary emboli although his lower extremity Dopplers ordered by his primary care was positive for DVT. He has been on anticoagulation. In the meantime his breathing has improved since being on the anticoagulation which is reassuring. The patient also did get his new APAP. The rest med AirSense 11 is working very well for him. His AHI is down to 0.1. He is using more than 4 hours a night. Typically averaging between 6- 7. I did increase the pressure some from 5 cm to 6 cm the minimum pressure and change them maximum pressure to 14 cm. He is tolerating well the therapy has been affecting beneficial. He is also using his inhalers as prescribed. No exacerbations. Has not had to use his rescue inhaler. We did review his CTA no evidence of any pulmonary nodules which is reassuring. He does have moderate degree of emphysema and also has some minimal basilar peripheral scarring. 11/13/2023 the patient is here for a pulmonary follow-up visit. Overall the patient has been doing well. He is status post CABG x3 back in the fall 2022. The surgery went well. He is recovering well from a respiratory status. Also from a cardiac status. He does continue to use his CPAP. CPAP therapy continues to be affecting beneficial. His pressures at the same. He continues to get supplies readily. Patient has a relatively new machine. In addition to that has been using his inhaler therapy. He needs to get refills. I will send him to the pharmacy. He is complaining of increasing allergy symptoms nasal congestion. He did respond to Zyrtec. Will go ahead and send him Astelin nasal spray to see this provides him with some more direct intervention to his nasal passages. Patient understands has a bad taste any has to use it a certain way. In addition to that he had a CT scan of the chest at [facility] back in May 2023 which we personally reviewed. He does have multiple pulmonary nodules 1 that is measuring about 4 mm in size. Has a subsolid component. The patient does need a follow-up sometime in the fall 2023. He will follow-up with me sometime after that CT scan. If the patient has any worsening issues prior to that he will call for an earlier assessment. 07/15/2024 the patient is here for a pulmonary follow-up visit. Overall he is d oing well. He continues uses CPAP every night. CPAP therapy continues to be affecting beneficial. He does use an F30 mask and he gets his supplies from [employer]. Does been affecting beneficial. In the meantime he does complaint of some dyspnea on exertion. He does have underlying COPD. We did review his last CT scan demonstrating moderate degree of emphysema. Will have him repeat his pulmonary function studies the next visit. In the meantime he has been taking Incruse and has not been using any combination inhalers. Therefore, will switch him from Incruse to Anoro at this time to provide him with the best bronchodilation. Hold off on any inhaled steroids specially with his hoarseness. Follow-up after his PFTs. [facility] Medical History (Updated 11/13/23 @ 21:07 by Geo Martinez MD) Pulmonary nodule DVT (deep venous thrombosis) Adrenal insufficiency Chest discomfort Dyspnea EDUARDO (obstructive sleep apnea) Adrenal cortex hypofunction Hypoglycemia Depression COPD (chronic obstructive pulmonary disease) Dyslipidemia Hypertension CAD (coronary artery disease) Diabetes type 2, controlled Chronic allergic rhinitis EDUARDO on CPAP Asthma Surgical History History of back surgery Hx of percutaneous transluminal coronary angioplasty Family History Father Asthma Mother Heart disease Diabetes Social History Household Members: Spouse Household Members Other:: Alcohol intake: current Alcohol intake frequency: does not drink Patient Tobacco Use Status: Former Tobacco user Years Smoked: 34 years Review of Systems Const Denies night sweats ENT Denies change in voice, Denies lip swelling, Denies mouth pain, Reports nasal congestion, Reports nasal discharge and Denies tongue swelling Card Denies chest pain, Denies dyspnea and Reports dyspnea on exertion Resp Denies chest congestion, Reports cough, Denies dyspnea, Reports dyspnea on exertion and Denies wheezing GI Denies abdominal pain Musc Denies no additional complaints Neuro Denies Neuro-related abnormal movements Psych Denies no additional complaints Kenny/Lymph Denies easy bleeding and Denies lymphadenopathy Aller/Immun Denies lip swelling, Denies tongue swelling and Denies wheezing Physical Exam Vital Signs: Last Vital Signs Pulse 60 07/15/24 10:57 BP 136/68 07/15/24 10:57 Pulse Ox 96 07/15/24 10:57 Oxygen Delivery Method Room Air 07/15/24 10:57 Const General: alert HEENT General nose exam: Abnormal external nose present and Nasal discharge present Eyes Pupils: Equal, round and reactive pupils present Neck Neck: Yes normal visual inspection, Yes full ROM and Yes no lymphadenopathy Chest Chest palpation & inspection: normal inspection of the chest Resp Effort & Inspection: normal respiratory effort Auscultation: no wheezes and diminished lung sounds Cardio Rate: regular rate Rhythm: regular rhythm Heart sounds: S1 normal heart sound present and S2 normal heart sound present GI Palpation (GI): Soft to palpation and nontender Auscultation: normal bowel sounds General: Yes no CVA tenderness Back/Spine/Pelvis Back: no CVA tenderness Skin General skin exam: rashes and/or lesions noted Neuro Cranial nerves: Yes Equal, round and reactive pupils present Assessment & Plan Assessment & Plan (1) COPD (chronic obstructive pulmonary disease): Code(s): J44.9 - Chronic obstructive pulmonary disease, unspecified Category: Medical Qualifiers: COPD type: COPD with acute lower respiratory infection Qualified Code(s): J44.0 - Chronic obstructive pulmonary disease with (acute) lower respiratory infection Plan: Start Symbicort Continue Singulair Prednisone taper and abx (2) EDUARDO on CPAP: Code(s): G47.33 - Obstructive sleep apnea (adult) (pediatric); Z99.89 - Dependence on other enabling machines and devices Category: Medical Plan: conitnue CPAP therapy (3) Chronic allergic rhinitis: Code(s): J30.9 - Allergic rhinitis, unspecified Category: Medical Plan: anti histamine therapy (4) Dyspnea: Code(s): R06.00 - Dyspnea, unspecified Category: Medical Qualifiers: Dyspnea type: dyspnea on exertion Qualified Code(s): R06.09 - Other forms of dyspnea (5) Adrenal insufficiency: Code(s): E27.40 - Unspecified adrenocortical insufficiency Category: Medical Plan stop symbiocrt stop Incruse start Anoro daily THEO as needed Continue APAP nightly, adjusted pressures 6-14. Doing very well, F30 Regional nasal rinsing astelin nasal spray fluticasone nasal spray in the morning ipratropium nasal spray as needed CT chest Jun 2024, awaiting results PFTs in Spring follow-up in 5-6 months Orders: Orders PFT pulmonary function test 3 Months J44.0 - Chronic obstructive pulmonary disease with (acute) lower respiratory infection Medications: New umeclidinium-vilanterol 62.5-25 mcg/actuation (Anoro Ellipta) 1 inh inhalation DAILY 60 ea 11RF J44.89 - Other specified chronic obstructive pulmonary disease Coding Level of Care Code Est Pt Level 4 (53923) Complex EM visit Add On G2211 Diagnoses Chronic obstructive pulmonary disease with acute lower respiratory infection J44.0 COPD type: COPD with acute lower respiratory infection EDUARDO on CPAP G47.33; Z99.89 Chronic allergic rhinitis J30.9 Dyspnea on exertion R06.09 Dyspnea type: dyspnea on exertion Adrenal insufficiency E27.40 Time Spent (min) 17
== END 2024-07-15 11:25 | disposition home or self-care (01) ==
PROVIDERS: PCP Pediatrics; Visit Provider Hospitalist
DX: J44.0 Chronic obstructive pulmonary disease with (acute) lower respiratory infection (principal); G47.33 Obstructive sleep apnea (adult) (pediatric); Z99.89 Dependence on other enabling machines and devices; J30.9 Allergic rhinitis, unspecified; R06.09 Other forms of dyspnea; E27.40 Unspecified adrenocortical insufficiency
CPT/HCPCS: 99214; G2211

== ENCOUNTER → 2024-07-15 10:56 | Outpatient (BNVA) | payer OTHER, SELFPAY | PROVIDERS: PCP Pediatrics; Visit Provider Hospitalist | DX: J44.0 Chronic obstructive pulmonary disease with (acute) lower respiratory infection (principal); J30.9 Allergic rhinitis, unspecified; R06.09 Other forms of dyspnea; G47.33 Obstructive sleep apnea (adult) (pediatric); Z99.89 Dependence on other enabling machines and devices; E27.40 Unspecified adrenocortical insufficiency | CPT/HCPCS: 99212 ==

== ENCOUNTER 2024-08-21 07:38 | Outpatient (REF) | payer OTHER, SELFPAY ==
--- NOTE | 2024-08-21 08:10 | PFT_ITS ---
Flows: FEV1: 89 % of predicted at 2.61 L FVC: 101 % of predicted at 3.82 L FEV1/FVC: 60 % Bronchodilator response: Present in small to medium airways only Volumes: Total lung capacity: 84 % of predicted at 5.24 L Residual volume: 60 % of predicted at 1.28 L Slow vital capacity: 95 % of predicted at 3.95 L Expiratory reserve volume: 60 % of predicted at 0.62 L Diffusion capacity: Moderately decreased Impression: Mild obstructive ventilatory defect with bronchodilator response present in small to medium airways only. Decreased diffusion capacity suggests emphysema. MTDD
== END 2024-08-21 07:39 | disposition home or self-care (01) ==
LOC: HO.RESP 07:38
PROVIDERS: PCP Pediatrics; Visit Provider Hospitalist
DX: J44.0 Chronic obstructive pulmonary disease with (acute) lower respiratory infection (principal)
CPT/HCPCS: 94010; 94640; 94727; 94729

== ENCOUNTER → 2024-08-21 08:10 | Outpatient (BNV) | payer OTHER, SELFPAY | PROVIDERS: PCP Pediatrics; Visit Provider Internal Medicine Pulmonary Disease | DX: J44.0 Chronic obstructive pulmonary disease with (acute) lower respiratory infection (principal) | CPT/HCPCS: 94060; 94727; 94729 ==

== ENCOUNTER 2024-12-09 10:54 | Outpatient (AMB) | payer OTHER, SELFPAY ==
[2024-12-09 10:57] VITALS: BP 158/82; PULSE 46; O2SAT 98; BMI 30.2
--- NOTE | 2024-12-09 10:57 | MHC.OFFVIS ---
Vital Signs 12/09/24 10:57 Height 5 ft 6 in Weight 187 lb 6.287 oz BMI 30.2 BP 158/82 H Blood Pressure Location Lt brachial Position Sitting Pulse 46 L Pulse Source Pulse Oximeter Pulse Oximetry (%) 98 Oxygen Delivery Method Room Air Intake Visit Reasons: COPD Allergies ibuprofen Allergy (Mild, Verified 12/09/24 11:02) Rash penicillin V Allergy (Mild, Verified 12/09/24 11:02) Rash HPI Comments Details: Patient is a 69-year-old gentleman known moderate persistent asthma and EDUARDO on CPAP. He had been controlled on his respiratory medications and his nebulizer, but, he ran out of the medications. He did not have any follow-ups. He has been having worsening shortness of breath and wheezing. He has been waking up short of breath and coughing at nighttime. He has been noticing significant nasal congestion and cough as well. He has been developing increasing shortness of breath due to the chest tightness. Overall he is doing well with his current respiratory regimen increasing Symbicort and ProAir. He did also respond very nicely to the Claritin. He has significant allergies at this time. 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 Otherwise he is doing well. Does have coughing at times intermittently. Has not had to use his rescue inhaler more than twice a week. She was 04/25/2021 the patient is here for pulmonary follow-up visit. He has been having worsening respiratory symptoms. Has been having shortness of breath and chest tightness moderate severity. Also congestion in the chest area with increased mucus production. This has been the case specially since he has not been able to get his maintenance medication. He has responded well to Symbicort in the past. Therefore, will plan to send this SIRENA for him to be able to start respite respiratory therapy. 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 He continues uses CPAP. The CPAP therapy continues to be affecting beneficial. He does use it for more than 4 hours a night. He still waiting to get new supplies as he is waiting for the new mask F30 2 in that is waiting for his [employer] company to approve. 02/23/2022 the patient is here for a pulmonary follow-up visit. Overall he is doing well from a respiratory status. He feels that his respiratory symptoms have dramatically improved after he was diagnosed with adrenal insufficiency and started on therapy. He is now off the Trelegy as he was causing her to have adverse effects and is tolerating just the Flovent just as well. His hoarseness is better. He does have significant nasal congestion. Typically in the morning. We talked about the importance of nasal rinsing prior to putting on the CPAP. Also, having get some allergy testing to address any other allergic reactions. He recently was stung by bee and resulted in significant amount of inflammation. The patient's CPAP therapy has been affecting beneficial. He has been tolerating the therapy well. The F 30 mask has been very comfortable for him. His DME company will have to change due to contracture agreements with his insurance company. 07/13/2022 the patient is here for pulmonary follow-up visit. He complains of worsening dyspnea on exertion. Moderate severity. Mainly with activity. Has been a Symbicort initially. Although, looking at his inhalers he is only taking Flovent in a rescue inhaler. She the rescue inhaler does help him. We did go for brief walking oximetry in the patient did have some difficulty with restlessness and appear to have some audible wheezing. The patient also has been using his CPAP. The CPAP therapy continues to be affecting beneficial. He does use it for more than 4 hours a night. He did have to switch DME companies because of contracture agreements with his insurance company. They did require a repeat sleep study. He did have a home sleep study. Demonstrated an AHI of 2.5 which is not significant. Although at this point I do believe the patient has significant sleep apnea and I do not believe that test was accurate. Therefore the patient will require in-lab study to further address the question of sleep apnea in continue to uses CPAP. The patient will go undergo a chest x-ray and we will try him on Breztri. The the patient already has hoarseness and he does not tolerate powdered inhalers. Will have the patient return after his sleep study. 09/15/2022 the patient is here for a pulmonary follow-up visit. The patient has been having worsening chest tightness and shortness of breath. He has been using the Symbicort twice a day with partial resolution of the symptoms. He also has been using his rescue medication through the nebulizer. He does need a rescue inhaler. The patient also has been using the CPAP. He the CPAP therapy continues to be very affecting beneficial for him. He does have a fullface mask and unfortunately the head gear is broken. He uses the F 30. Unfortunately I do not have want to give him. He does have tape with right now. He did have a sleep study. Waiting for the results. Once the patient gets active with the [employer] company will start getting supplies for his CPAP. The patient does need to continue with PAP therapy at this time. He is also describing some dyspnea and chest pressure on exertion. Explained to him that this may be related to his underlying asthma although we need to consider other etiologies including cardiac or pulmonary vascular conditions. He did have a cardiac stress echo test done about 2 years ago that was reassuring. He denies ever having blood clots. In view of the symptoms I did have him do a brief walking oximetry in his oxygen did drop to the mid 90s. Therefore, have him get some blood work including a D-dimer and also a chest x-ray. If the D-dimer comes back positive the new need a CTA to rule out thromboembolic disease. 12/04/2022 the patient is here for pulmonary follow-up visit. Since we last spoke he did have a CTA that was negative for any pulmonary emboli although his lower extremity Dopplers ordered by his primary care was positive for DVT. He has been on anticoagulation. In the meantime his breathing has improved since being on the anticoagulation which is reassuring. The patient also did get his new APAP. The rest med AirSense 11 is working very well for him. His AHI is down to 0.1. He is using more than 4 hours a night. Typically averaging between 6-7. I did increase the pressure some from 5 cm to 6 cm the minimum pressure and change them maximum pressure to 14 cm. He is tolerating well the therapy has been affecting beneficial. He is also using his inhalers as prescribed. No exacerbations. Has not had to use his rescue inhaler. We did review his CTA no evidence of any pulmonary nodules which is reassuring. He does have moderate degree of emphysema and also has some minimal basilar peripheral scarring. 11/13/2023 the patient is here for a pulmonary follow-up visit. Overall the patient has been doing well. He is status post CABG x3 back in the fall 2022. The surgery went well. He is recovering well from a respiratory status. Also from a cardiac status. He does continue to use his CPAP. CPAP therapy continues to be affecting beneficial. His pressures at the same. He continues to get supplies readily. Patient has a relatively new machine. In addition to that has been using his inhaler therapy. He needs to get refills. I will send him to the pharmacy. He is complaining of increasing allergy symptoms nasal congestion. He did respond to Zyrtec. Will go ahead and send him Astelin nasal spray to see this provides him with some more direct intervention to his nasal passages. Patient understands has a bad taste any has to use it a certain way. In addition to that he had a CT scan of the chest at [facility] back in May 2023 which we personally reviewed. He does have multiple pulmonary nodules 1 that is measuring about 4 mm in size. Has a subsolid component. The patient does need a follow-up sometime in the fall 2023. He will follow-up with me sometime after that CT scan. If the patient has any worsening issues prior to that he will call for an earlier assessment. 07/15/2024 the patient is here for a pulmonary follow-up visit. Overall he is doing well. He continues uses CPAP every night. CPAP therapy continues to be affecting beneficial. He does use an F30 mask and he gets his supplies from [employer]. Does been affecting beneficial. In the meantime he does complaint of some dyspnea on exertion. He does have underlying COPD. We did review his last CT scan demonstrating moderate degree of emphysema. Will have him repeat his pulmonary function studies the next visit. In the meantime he has been taking Incruse and has not been using any combination inhalers. Therefore, will switch him from Incruse to Anoro at this time to provide him with the best bronchodilation. Hold off on any inhaled steroids specially with his hoarseness. Follow-up after his PFTs. 12/09/2024 the patient is here for pulmonary follow-up visit. Overall the patient has been doing good. Has been having worsening cough still. Some chest congestion. The patient has been using his respiratory therapy. Ran out of the Anoro so therefore his primary care sent to the pharmacy. He has not seen much improvement after starting the medication. The patient does have a congested cough. Personally more bronchitis. Likely postviral. Will go ahead and treat him with doxycycline. In addition to that will go ahead and add Arnuity to his Anoro to optimize his respiratory therapy. At the patient is no better he will call. He did have a CT scan back in June 2024 demonstrating no acute disease. And he also continues with CPAP therapy. CPAP therapy continues to be affecting beneficial. He does use it for more than 4 hours a night. [facility] Medical History (Updated 12/09/24 @ 20:00 by Geo Martinez MD) Pulmonary nodule DVT (deep venous thrombosis) Adrenal insufficiency Chest discomfort Dyspnea EDUARDO (obstructive sleep apnea) Adrenal cortex hypofunction Hypoglycemia Depression COPD (chronic obstructive pulmonary disease) Dyslipidemia Hypertension CAD (coronary artery disease) Diabetes type 2, controlled Chronic allergic rhinitis EDUARDO on CPAP Asthma Surgical History History of back surgery Hx of percutaneous transluminal coronary angioplasty Family History Father Asthma Mother Heart disease Diabetes Social History Household Members: Spouse Household Members Other:: Alcohol intake: current Alcohol intake frequency: does not drink Patient Tobacco Use Status: Former Tobacco user Years Smoked: 34 years Review of Systems Const Denies chills, Denies fatigue, Denies fever(s), Denies weight gain and Denies weight loss ENT Denies dizziness, Denies lip swelling and Denies tongue swelling Card Denies chest pain, Denies leg edema, Denies lightheadedness, Denies palpitations, Denies dyspnea on exertion, Denies orthopnea and Denies other Resp Reports chest congestion, Reports cough, Denies dyspnea on exertion and Denies wheezing GI Denies hematochezia and Denies change in stool character Musc Denies abnormal gait, Denies muscle weakness, Denies numbness, Denies radiating pain into limb and Denies tingling Neuro Denies abnormal gait, Denies dizziness, Denies numbness and Denies tingling Psych Denies no additional complaints Endo Denies fatigue and Denies palpitations Kenny/Lymph Denies easy bleeding and Denies lymphadenopathy Aller/Immun Denies lip swelling, Denies tongue swelling and Denies wheezing Physical Exam Vital Signs: Last Vital Signs Pulse 46 L 12/09/24 10:57 BP 158/82 H 12/09/24 10:57 Pulse Ox 98 12/09/24 10:57 Oxygen Delivery Method Room Air 12/09/24 10:57 BMI result Body Mass Index 30.2 Const General: alert HEENT General nose exam: Abnormal external nose present and Nasal discharge present Eyes Pupils: Equal, round and reactive pupils present Neck Neck: Yes normal visual inspection, Yes full ROM and Yes no lymphadenopathy Chest Chest palpation & inspection: normal inspection of the chest Resp Effort & Inspection: normal respiratory effort and Actively coughing Quality: productive Auscultation: no wheezes and diminished lung sounds Cardio Rate: regular rate Rhythm: regular rhythm Heart sounds: S1 normal heart sound present and S2 normal heart sound present GI Palpation (GI): Soft to palpation and nontender Auscultation: normal bowel sounds General: Yes no CVA tenderness Back/Spine/Pelvis Back: no CVA tenderness Skin General skin exam: rashes and/or lesions noted Neuro Cranial nerves: Yes Equal, round and reactive pupils present Assessment & Plan Assessment & Plan (1) COPD (chronic obstructive pulmonary disease): Code(s): J44.9 - Chronic obstructive pulmonary disease, unspecified Category: Medical Qualifiers: COPD type: COPD with acute lower respiratory infection Qualified Code(s): J44.0 - Chronic obstructive pulmonary disease with (acute) lower respiratory infection Plan: Start Symbicort Continue Singulair Prednisone taper and abx (2) EDUARDO on CPAP: Code(s): G47.33 - Obstructive sleep apnea (adult) (pediatric); Z99.89 - Dependence on other enabling machines and devices Category: Medical Plan: conitnue CPAP therapy (3) Chronic allergic rhinitis: Code(s): J30.9 - Allergic rhinitis, unspecified Category: Medical Plan: anti histamine therapy (4) Dyspnea: Code(s): R06.00 - Dyspnea, unspecified Category: Medical Qualifiers: Dyspnea type: dyspnea on exertion Qualified Code(s): R06.09 - Other forms of dyspnea (5) Adrenal insufficiency: Code(s): E27.40 - Unspecified adrenocortical insufficiency Category: Medical (6) Bronchitis: Code(s): J40 - Bronchitis, not specified as acute or chronic Category: Medical Plan stop symbiocrt start Doxycycline start Arnuity continue Anoro daily THEO as needed Continue APAP nightly, adjusted pressures 6-14. Doing very well, F30 Regional nasal rinsing astelin nasal spray fluticasone nasal spray in the morning ipratropium nasal spray as needed follow-up in 8-12 months Medications: New fluticasone furoate 100 mcg/actuation (Arnuity Ellipta) 1 inh inhalation DAILY 30 ea 11RF 30 days doxycycline monohydrate 100 mg PO BID 28 tabs 0RF 14 days Coding Level of Care Code Est Pt Level 4 (20507) Complex EM visit Add On G2211 Diagnoses Chronic obstructive pulmonary disease with acute lower respiratory infection J44.0 COPD type: COPD with acute lower respiratory infection EDUARDO on CPAP G47.33; Z99.89 Chronic allergic rhinitis J30.9 Dyspnea on exertion R06.09 Dyspnea type: dyspnea on exertion Adrenal insufficiency E27.40 Bronchitis J40 Time Spent (min) 17
--- OUTSIDE RECORDS SUMMARY | 2024-12-09 12:38 | XMS_ITS | Encounter Summary ---
Author Organization [facility] Address [address] [place] [address] Care Team Providers Care Director Data Management Name Role Phone Andrey Eubanks MD Unavailable Unavailable Sumeet Richard MD Primary Care Provider Cheryl mimiilaRaymond Cannon MD Unavailable [phone] Rema Carbone NP Unavailable [phone] Encounter Details Date Type Department Care Team Description 09/19/2023 Cost Estimating Engineer Report Medical Records [address] [place] [id number] Abstract, Provider Social History Tobacco Use Types Packs/Day Years Used Date Smoking Tobacco: Former Cigarettes 2 35 Smokeless Tobacco: Never Comments:Quit x 13 yrs Alcohol Use Standard Drinks/Week Comments No 0 (1 standard drink = 0.6 oz pur e alcohol) Sex Assigned at Date Recorded Not on file Job Start Date Occupation Industry Not on file Not on file Not on file documented as of this encounter Plan of Treatment Not on file documented as of this encounter Visit Diagnoses Not on filedocumented in this encounter Care Teams Director Data Management Relationship Specialty Start Date End Date Sumeet Richard MD PCP - General Internal Medicine 12/08/21 Andrey Eubanks MD 10/26/17 Raymond Gomez MD [address] [place] [address] [place] [address] Gambreler Helper Cardiovascular Disease 12/26/22 Rema Carbone NP [address] [place] [address] [address] [place] [address] Nurse Practitioner Cardiology 11/9/23 documented as of this encounter
--- OUTSIDE RECORDS SUMMARY | 2024-12-09 12:38 | XMS_ITS | Encounter Summary ---
Author Organization [facility] Address [address] [place] [address] Care Team Providers Care Head Of Mathematics Name Role Phone Andrey Eubanks MD Unavailable Unavailable Sumeet Richard MD Primary Care Provider Cheryl Raymond Reyes MD Unavailable [phone] Rema Carbone NP Unavailable [phone] Encounter Details Date Type Department Care Team Description 10/22/2023 Dinkey Engine Mechanic Report Medical Records [address] [place] [id number] Sumeet Richard MD Social History Tobacco Use Types Packs/Day Years [...] on filedocumented in this encounter Care Teams Head Of Mathematics Relationship Specialty Start Date End Date Sumeet Richard MD PCP - General Internal Medicine 12/08/21 Andrey Eubanks MD 10/26/17 Raymond Gomez MD [address] [place] [address] [place] [id number] Professor Of Violin Cardiovascular Disease 12/26/22 Rema Carbone NP [address] [place] [address] [address] [place] [address] Nurse Practitioner Cardiology 06/14/23 documented as of this encounter
--- OUTSIDE RECORDS SUMMARY | 2024-12-09 12:38 | XMS_ITS | Encounter Summary ---
Author Organization [facility] Address [address] [place] [address] Care Team Providers Care Handbag Parts Cutter Name Role Phone Andrey Eubanks MD Unavailable Unavailable Sumeet Richard MD Primary Care Provider Cheryl Raymond Reyes MD Unavailable [phone] Rema Carbone NP Unavailable [phone] Encounter Details Date Type Department Care Team Description 05/28/2023 SCAN Medical Records [address] [place] [id number] Abstract, Provider Social History Tobacco Use Types [...] on filedocumented in this encounter Care Teams Handbag Parts Cutter Relationship Specialty Start Date End Date Sumeet Richard MD PCP - General Internal Medicine 12/08/21 Andrey Eubanks MD 10/26/17 Raymond Gomez MD [address] [place] [address] [place] [id number] Rice Cleaning Machine Tender Cardiovascular Disease 12/26/22 Rema Carbone NP [address] [place] [address] [address] [place] [address] Nurse Practitioner Cardiology 06/14/23 documented as of this encounter
--- OUTSIDE RECORDS SUMMARY | 2024-12-09 12:38 | XMS_ITS | Encounter Summary ---
Author Organization [facility] Address [address] [place] [address] Care Team Providers Care Supervisor Tumblers Name Role Phone Andrey Eubanks MD Unavailable Unavailable Sumeet Richard MD Primary Care Provider Cheryl Raymond Reyes MD Unavailable [phone] Rema Carbone NP Unavailable [phone] Encounter Details Date Type Department Care Team Description 06/01/2023 Burnisher Report Medical Records [address] [place] [id number] Hailey Lundy MD Social History Tobacco Use Types Packs/Day [...] on filedocumented in this encounter Care Teams Supervisor Tumblers Relationship Specialty Start Date End Date Sumeet Richard MD PCP - General Internal Medicine 12/08/21 Andrey Eubanks MD 10/26/17 Raymond Gomez MD [address] [place] [address] [place] [id number] Planograph Operator Cardiovascular Disease 12/26/22 Rema Carbone NP [address] [place] [address] [place] [phone] Nurse Practitioner Cardiology 06/14/23 documented as of this encounter
--- OUTSIDE RECORDS SUMMARY | 2024-12-09 12:38 | XMS_ITS | Encounter Summary ---
Author Organization [facility] Address [address] [place] [address] Care Team Providers Care Commercial Front Load Operator Name Role Phone Andrey Eubanks MD Unavailable Unavailable Sumeet Richard MD Primary Care Provider Cheryl Raymond Reyes MD Unavailable [phone] Rema Carbone NP Unavailable [phone] Encounter Details Date Type Department Care Team Description 12/26/2021 Orders Only Medical Records [address] [place] [id number] Annmarie Ortega MD Social History Tobacco Use Types Packs/Day Years Used Date Smoking Tobacco: Former Cigarettes 2 35 Smokeless Tobacco: Never Alcohol Use Standard Drinks/Week Comments No 0 (1 standard drink = 0.6 oz pur e alcohol) Sex Assigned at Date Recorded Not on file Job Start Date Occupation Industry Not on file Not on file Not on file COVID-19 Exposure Response Date Recorded In the last 10 days, have yo u been in contact with someone who was confirmed or suspected to have Coronavirus/COVID-19? No / Unsure 12/08/2021 2:03 PM EDT documented as of this encounter Plan of Treatment Not on file documented as of this encounter Procedures Procedure Name Priority Date/Time Associated Diagnosis Comments OUTSIDE PATHOLOGY Routine 12/21/2021 documented in this encounter Results * OUTSIDE PATHOLOGY (12/21/2021) Annmarie Ortega MD OUTSIDE LAB documented in this encounter Visit Diagnoses Not on filedocumented in this encounter Care Teams Commercial Front Load Operator Relationship Specialty Start Date End Date Sumeet Richard MD PCP - General Internal Medicine 12/08/21 Andrey Eubanks MD 10/26/17 Raymond Gomez MD [address] [place] [address] [address] [place] [address] Media Promoter Cardiovascular Disease 12/26/22 Rema Carbone NP [address] [place] [address] [address] [place] [address] Nurse Practitioner Cardiology 06/14/23 documented as of this encounter
--- OUTSIDE RECORDS SUMMARY | 2024-12-09 12:38 | XMS_ITS | Clinical Summary ---
Author Organization [facility] Address [address] [place] [address] Phone Care Team Providers Care Crane Helper Name Role Phone Sumeet Richard MD Primary Care Provider [phone] Allergies Active Allergy Reactions Criticality Noted Date Comments Ibuprofen 01/01/2018 Naproxen Sodium 12/19/2017 Penicillins 12/19/2017 Sulindac 12/19/2017 Medications ACETAMINOPHEN ORAL Take by mouth as needed. Active ASCORBIC ACID, VITAMIN C, ORAL Take 1 Tablet by mouth daily. 2000 mg Active aspirin 81 mg EC tablet Take 1 Tablet by mouth daily. Active glucose blood test strip Check sugars 1-2 times a day Active atorvastatin (LIPITOR) 40 mg tablet TAKE 1 TABLET BY MOUTH EVERY DAY AT BEDTIME Active budesonide-formot Jass (SYMBICORT) 160-4.5 mcg/actuation inhaler Inhale 2 Puffs into the lungs every 12 hours for 30 days. This medication has inhaler steroid: Rinse mouth with water and expectorate after each dose to prevent oral/esophageal candidiasis or fungal infection. Active cholecalciferol (VITAMIN D-3) 25 mcg (1,000 unit) tablet Take 1 Tablet by mouth daily. Active colchicine (MITIGARE) 0.6 mg capsule capsule Take 1 Capsule by mouth daily. Active fludrocortisone (FLORINEF) 0.1 mg tablet Take 1 Tablet by mouth daily. Active hydrocortisone (CORTEF) 5 mg tablet Take 2 tabs in AM and 1 tab at 2 pm Active lidocaine 4 % patch Apply 1 Patch topically daily. As needed for sternal wound pain Active montelukast (SINGULAIR) 10 mg tablet Take 1 Tablet by mouth at bedtime. Active nitroglycerin (NITROSTAT) 0.[address] 1 Tablet under the tongue every 5 minutes as needed for Chest pain. Active sertraline (ZOLOFT) 100 mg tablet Take 1 Tablet by mouth daily. Active sildenafiL (VIAGRA) 50 mg tablet Take 50 mg by mouth as needed. Active tiotropium (SPIRIVA) 18 mcg per inhalation capsule Inhale 18 mcg into the lungs daily. Inhale the contents of one capsule through the Spiriva device every AM Active zolpidem (AMBIEN) 5 mg tablet Take 1 Tablet by mouth at bedtime as needed. Active metoprolol tartrate (LOPRESSOR) 25 mg tablet Take 1 tablet (25 mg total) by mouth 2 (two) times a day. 180 each 1 5 Active hydrocortisone sod succinate (Solu-CORTEF) 100 mg recon soln injectionIndicati ons:Adrenal insufficiency (CMS/HCC V24) To inject 100 mg IM once daily As needed (emergency/very sick) 1 each 2 5 Active lisinopriL (PRINIVIL,ZESTRIL ) 5 mg tablet Take 1 tablet (5 mg total) by mouth 1 (one) time each day. 90 tablet 1 5 Active Active Problems Problem Noted Date Diagnosed Date Abnormal barium swallow 06/30/2024 Overview (06/30/2024): Narrowing at mid thoracic esophagus Adrenal insufficiency (CMS/HCC V24) 12/18/2023 Chest pain 03/02/2023 Overview (06/30/2024): Last Assessment & Plan: Patient continues to endorse ongoing chest discomfort since his CABG. He has trialed numerous medications including Tylenol, NSAIDs as well as colchicine without relief. Unfortunately the patient was seen by cardiac surgery after my last office visit and were awaiting results of CT scan. Unfortunately this has yet to be completed as we are waiting for prior authorization. After review with Dr. Gomez, I have sent a prescription for lidocaine patches for the patient to use while we are waiting for CT scan. I strongly encouraged the patient to follow-up with cardiac surgery going forward. Hyperlipidemia 01/01/2018 Overview (06/30/2024): Last Assessment & Plan: Goal LDL cholesterol is less than 70. We will update a lipid panel. Continue with statin as prescribed. Spinal stenosis of lumbar region with radiculopa thy 01/01/2018 Benign prostatic hyperplasia 01/01/2018 Coronary artery disease 01/01/2018 Overview (06/30/2024): Last Assessment & Plan: Status post three-vessel CABG in May 2023. He no longer endorses any exertional symptoms, chest pain, pressure or sternal pain. He will continue on guideline directed medical therapy of aspirin, Plavix, statin and beta-ganesh. Instructed to call 911 or go to the emergency room should he begin to experience chest pain or pressure lasting greater than 10 minutes that is not resolved with rest. Diverticulosis 01/01/2018 Erectile dysfunction 01/01/2018 Hypertension 01/01/2018 Overview (06/30/2024): Last Assessment & Plan: Acceptable during our exam today with a reading of 130/70. I have made no changes to his antihypertensive medications. Educated on the importance of diet lifestyle modification to further assist in lowering blood pressure. Encouraged to follow low-salt low-fat diet, make purposeful strides towards weight loss and engage in routine aerobic exercise as tolerated. Seborrheic dermatitis 01/01/2018 Chronic hoarseness 12/20/2017 COPD (chronic obstructive pu lmonary disease) (CMS/HCC V24, CMS/[facility] V28) 12/19/2017 Encounters Date Type Department Care Team Description 09/16/2024 Telephone [facility] [address] [facility] [address] [place] [address] Shanelle Ross NP from Last 3 Months Surgical History Surgery Date Site/Laterality Comments ANGIOPLASTY PROCEDURE: HISTORICAL ANGIOPLASTY; COMMENT: LAD ESOPHAGOGASTRODUODENOSCOPY 12/21/2021 PROCEDURE: PA EGD TRANSORAL BIOPSY SINGLE/MULTIPLE; COMMENT: normal including esoph biopsy Medical History Medical History Date Comments Hyperlipidemia 01/01/2018 DX:Hyperlipidemi a COPD (chronic obstructive pu lmonary disease) ([facility] V24, [facility] V28) 12/19/2017 DX:COPD (chronic o bstructive pulmonary disease) ([facility]) Chronic hoarseness 12/20/2017 DX:Chronic ho arseness H/O herpes labialis 01/01/2018 DX:H/O herpe s labialis Spinal stenosis of lumbar re gion with radiculopathy 01/01/2018 DX:Spinal stenosis of lumbar region with radiculopathy Benign prostatic hyperplasia 01/01/2018 DX: Benign prostatic hyperplasia Coronary artery disease 01/01/2018 DX:Coron ruddy artery disease; COMMENT: S/p angioplasty LAD Diverticulosis 01/01/2018 DX:Diverticulosi s Seborrheic dermatitis 01/01/2018 DX:Seborrh eic dermatitis Erectile dysfunction 01/01/2018 DX:Erectile dysfunction Hypertension 01/01/2018 DX:Hypertension Hoarseness of voice DX:Hoarsenes s of voice Esophageal reflux DX:Esophageal reflux Abnormal barium swallow DX:Abnor mal barium swallow; COMMENT: Narrowing at mid thoracic esophagus Asthma DX:Asthma Dysphagia DX:Dysphagia GERD (gastroesophageal reflux disease) DX:GERD (gastroesophageal reflux disease) Depression DX:Depression Class 1 obesity DX:Class 1 obesi ty Family History Medical History Relation Name Comments Coronary artery disease Father Coronary artery disease Mother Relation Name Status Comments Father Mother Social History Tobacco Use Types Packs/Day Years Used Date Smoking Tobacco: Former Cigarettes Smokeless Tobacco: Never Tobacco Cessation:Counseling Given: Not Answered Alcohol Use Standard Drinks/Week Comments No 0 (1 standard drink = 0.6 oz pur e alcohol) Sex and Gender Information Value Date Recorded Sex Assigned at Male 10/02/2023 6:19 PM EST Legal Sex Male 9:30 AM EST Gender Identity Male 10/02/2023 6:19 PM EST Sexual Orientation Straight 10/02/2023 6: 19 PM EST Obstetrics History Last Filed Vital Signs Vital Sign Reading Time Taken Comments Blood Pressure 128/64 08/21/2024 1:07 PM EST Pulse 67 08/21/2024 1:07 PM EST Temperature 36 ??C (96.8 ??F) 08/21/2024 1:07 PM EST Respiratory Rate - - Oxygen Saturation 95% 08/21/2024 1:07 PM EST Inhaled Oxygen Concentration - - Weight 83.9 kg (185 lb) 08/21/2024 1:07 PM EST Height 167.6 cm (5' 6 ) 08/21/2024 1:07 PM EST Body Mass Index 29.86 08/21/2024 1:07 PM EST Plan of Treatment Health Maintenance Due Date Last Done Comments RSV Immunization Adult Patients (1 - Risk 60-74 years 1-dose series) 2017 Abdominal Aortic Aneurysm (AAA) Screen 07/10/2022 Cholesterol Screening (Lipid Panel) 07/10/2022 Colorectal Cancer Screening: Colonoscopy 07/10/2022 Depression Screening 07/10/2022 Hepatitis C Screening 07/10/2022 Medicare Annual Wellness Visit 07/10/2022 Social Influencers of Health Screening 07/10/2022 Hypertension/CHF/CAD Annual BMP Blood Test 07/18/2022 12/26/2018 Falls Risk Assessment 2022 COVID-19 Vaccine ( season) 2024 05/19/2024, 01/15/2023, 08/22/2022, Additional history exists DTaP,Tdap,and Td Vaccines (4 - Td or Tdap) 04/23/2028 04/23/2018, 05/20/2008, 08/08/2001 Zoster Vaccines Completed 12/29/2020, 08/06, 06/04/2013 Pneumococcal Vaccine: 50+ Years Completed 10/02/2022, 08/13/2012 Influenza Vaccine Completed 05/19/2024, , 06/14/2021, Additional history exists HIB Vaccines Aged Out No longer eligi ble based on patient's age to complete this topic HPV Vaccines Aged Out No longer eligi ble based on patient's age to complete this topic Hepatitis A Vaccines Aged Out No long er eligible based on patient's age to complete this topic Hepatitis B Vaccines Aged Out No long er eligible based on patient's age to complete this topic IPV Vaccines Aged Out No longer eligi ble based on patient's age to complete this topic MMR Vaccines Aged Out No longer eligi ble based on patient's age to complete this topic Meningococcal ACWY Vaccine Aged Out N o longer eligible based on patient's age to complete this topic Meningococcal B Vaccine Aged Out No l onger eligible based on patient's age to complete this topic RSV Immunization Patients Under 20 months Aged Out No longer eligible based on patient's age to complete this topic Varicella Vaccines Aged Out No longer eligible based on patient's age to complete this topic Procedures Procedure Name Priority Date/Time Associated Diagnosis Comments ANNUAL BMP BLOOD TEST Routine 12/26/2018 from Last 3 Months or Most Recently Relevant to Health Maintenance Results * Annual BMP Blood Test (12/26/2018) Annual BMP Blood Test abstracted us Historical Provider HEALTH MAINTENANCE Final Result from Last 3 Months or Most Recently Relevant to Health Maintenance Insurance MEDICAID - [place] [employer] MEDICARE Member Subscriber Plan / Payer (Ef fective 2023-Present) Name:Esaaneta AcostaAlfred murphy Relation to Subscriber:Self Name:Esabob AcostaAlfred murphy Payer ID:[id number] Group ID:[id number] Type:Not on file Address: [address] [place] [address] Care Teams Crane Helper Relationship Specialty Start Date End Date Sumeet Richard MD [address] [place] [phone] PCP - General Internal Medicine 12/08/21
--- OUTSIDE RECORDS SUMMARY | 2024-12-09 12:38 | XMS_ITS | Encounter Summary ---
Author Organization [facility] Address [address] [place] [address] Care Team Providers Care Permanent Mold Supervisor Name Role Phone Andrey Eubanks MD Unavailable Unavailable Sumeet Richard MD Primary Care Provider Cheryl Raymond Reyes MD Unavailable [phone] Rema Carbone NP Unavailable [phone] Encounter Details Date Type Department Care Team Description 12/18/2023 Telephone Endocrinology - [address] [address] Tana Martinez PA-C [address] [place] [address] Social History Tobacco Use Types Packs/Day Years [...] on file documented as of this encounter Miscellaneous Notes * Telephone Encounter - Kathy Álvarez L.P.N. - 12/19/2023 12:[address] Orozco office # [phone] Requested * Telephone Encounter - Tana Martinez PA-C - 12/18/2023 9:37 AM EDT Please request records from patient's calculating machine operator Dr. Pepe Marshall at [place] documented in this encounter Plan of Treatment Not on file documented as of this encounter Visit Diagnoses Not on filedocumented in this encounter Care Teams Permanent Mold Supervisor Relationship Specialty Start Date End Date Sumeet Richard MD PCP - General Internal Medicine 12/08/21 Andrey Eubanks MD 10/26/17 Raymond Gomez MD [address] [place] [address] [place] [address] Molecular Spectroscopist Cardiovascular Disease 12/26/22 Rema Carbone NP [address] [place] [address] [place] [address] Nurse Practitioner Cardiology 06/14/23 documented as of this encounter
--- OUTSIDE RECORDS SUMMARY | 2024-12-09 12:38 | XMS_ITS | Encounter Summary ---
Author Organization [facility] Address [address] [place] [address] Care Team Providers Care Director Of Early Childhood Name Role Phone Andrey Eubanks MD Unavailable Unavailable Sumeet Richard MD Primary Care Provider Cheryl Raymond Reyes MD Unavailable [phone] Rema Carbone NP Unavailable [phone] Encounter Details Date Type Department Care Team Description 05/28/2023 SCAN Medical Records [address] [place] [id number] Abstract, Provider Social History Tobacco Use Types [...] filedocumented in this encounter Care Teams Director Of Early Childhood Relationship Specialty Start Date End Date Sumeet Richard MD PCP - General Internal Medicine 12/08/21 Andrey Eubanks MD 10/26/17 Raymond Gomez MD [address] [place] [address] [place] [id number] Evening Sitter Cardiovascular Disease 12/26/22 Rema Carbone NP [address] [place] [address] [address] [place] [address] Nurse Practitioner Cardiology 06/14/23 documented as of this encounter
--- OUTSIDE RECORDS SUMMARY | 2024-12-09 12:38 | XMS_ITS | Encounter Summary ---
Author Organization [facility] Address [address] [place] [address] Care Team Providers Care Warranty Clerk Name Role Phone Andrey Eubanks MD Primary Care Provider Andrey Squires MD Unavailable Unavailable Sumeet Richard MD Primary Care Provider Raymond Dior MD Unavailable [phone] Rema Carbone NP Unavailable [phone] Encounter Details Date Type Department Care Team Description 10/12/2021 Green Marketing Specialist Report Medical Records [address] [place] [address] Elbert Law MD Social History Tobacco Use Types Packs/Day [...] on filedocumented in this encounter Care Teams Warranty Clerk Relationship Specialty Start Date End Date Andrey Eubanks MD PCP - General Family Practice 10/26/17 12/07/21 Sumeet Richard MD PCP - General Internal Medicine 12/08/21 Andrey Eubanks MD 10/26/17 Raymond Gomez MD [address] [place] [address] [address] [place] [address] Tanker Serviceman Cardiovascular Disease 12/26/22 Rema Carbone NP [address] [place] [address] [address]IVE [address] [place] [address] Nurse Practitioner Cardiology 06/14/23 documented as of this encounter
--- OUTSIDE RECORDS SUMMARY | 2024-12-09 12:38 | XMS_ITS | Encounter Summary ---
Author Organization [facility] Address [address] [place] [address] Care Team Providers Care Hypnotherapist Name Role Phone Andrey Eubanks MD Unavailable Unavailable Sumeet Richard MD Primary Care Provider Cheryl Raymond Reyes MD Unavailable [phone] Rema Carbone NP Unavailable [phone] Encounter Details Date Type Department Care Team Description 07/05/2023 Carpenter Helper Maintenance Report Medical Records [address] [place] [address] Abstract, Provider Social History Tobacco Use Types [...] suspected to have Coronavirus/COVID-19? No / Unsure 06/14/2023 7:55 AM EST documented as of this encounter Plan of Treatment Not on file documented as of this encounter Visit Diagnoses Not on filedocumented in this encounter Care Teams Hypnotherapist Relationship Specialty Start Date End Date Sumeet Richard MD PCP - General Internal Medicine 12/08/21 Andrey Eubanks MD 10/26/17 Raymond Gomez MD [address] [place] [address] [address] [place] [address] Dress Marker Cardiovascular Disease 12/26/22 Rema Carbone, MATTI [address] [place] [address] [address] [place] [address] Nurse Practitioner Cardiology 06/14/23 documented as of this encounter
--- OUTSIDE RECORDS SUMMARY | 2024-12-09 12:38 | XMS_ITS | Encounter Summary ---
Author Organization [facility] Address [address] [place] [address] Care Team Providers Care Food Service Specialist Name Role Phone Andrey Eubanks MD Unavailable Unavailable Sumeet Richard MD Primary Care Provider Cheryl mimiilaRaymond Cannon MD Unavailable [phone] Rema Carbone NP Unavailable [phone] Encounter Details Date Type Department Care Team Description 11/03/2023 Safety Deposit Supervisor Report Medical Records [address] [place] [address] Abstract, Provider Social History Tobacco Use Types [...] on filedocumented in this encounter Care Teams Food Service Specialist Relationship Specialty Start Date End Date Sumeet Richard MD PCP - General Internal Medicine 12/08/21 Andrey Eubanks MD 10/26/17 Raymond Gomez MD [address] [place] [address] [place] [address] Entry Level Manufacturing Engineer Cardiovascular Disease 12/26/22 Rema Carbone NP [address] [place] [address] [address] [place] [address] Nurse Practitioner Cardiology 11/9/23 documented as of this encounter
--- OUTSIDE RECORDS SUMMARY | 2024-12-09 12:38 | XMS_ITS | Encounter Summary ---
Author Organization [facility] Address [address] [place] [address] Care Team Providers Care Mergers And Acquisitions Attorney Name Role Phone Andrey Eubanks MD Primary Care Provider Andrey Squires MD Unavailable Unavailable Sumeet Richard MD Primary Care Provider Raymond Dior MD Unavailable [phone] Rema Carbone NP Unavailable [phone] Encounter Details Date Type Department Care Team Description 02/22/2021 SCAN Medical Records [address] [place] [address] Abstract, Provider Social History Tobacco Use Types [...] Name Priority Date/Time Associated Diagnosis Comments OUTSIDE STRESS TEST Routine 02/22/2021 documented in this encounter Results * OUTSIDE STRESS TEST (02/22/2021) Provider Default CARDIOLOGY documented in this encounter Visit Diagnoses Not on filedocumented in this encounter Care Teams Mergers And Acquisitions Attorney Relationship Specialty Start Date End Date Andrey Eubanks MD PCP - General Family Practice 10/26/17 12/07/21 Sumeet Richard MD PCP - General Internal Medicine 12/08/21 Andrey Eubanks MD 10/26/17 Raymond Gomez MD [address] [place] [address] [address] [place] [address] Inspector Outside Steam Distribution Cardiovascular Disease 12/26/22 Rema Carbone NP [address] [place] [address] [address] [place] [address] Nurse Practitioner Cardiology 06/14/23 documented as of this encounter
--- OUTSIDE RECORDS SUMMARY | 2024-12-09 12:38 | XMS_ITS | Encounter Summary ---
Author Organization [facility] Address [address] [place] [address] Care Team Providers Care Corporate Quality Manager Name Role Phone Andrey Eubanks MD Unavailable Unavailable Sumeet Richard MD Primary Care Provider Cheryl mimiilable Raymond Gomez MD Unavailable [phone] Rema Carbone NP Unavailable [phone] Encounter Details Date Type Department Care Team Description 10/16/2024 Orders Only Endocrinology - [place] [address] [place] [address] Sarah Gutiérrez MD [address] [place] [address] Social History Tobacco Use Types Packs/Day Years [...] on filedocumented in this encounter Care Teams Corporate Quality Manager Relationship Specialty Start Date End Date Sumeet Richard MD PCP - General Internal Medicine 12/08/21 Andrey Eubanks MD 10/26/17 Raymond Gomez MD [address] [place] [address] Line Locator Cardiovascular Disease 12/26/22 Rema Carbone NP [address] [place] [address] [address] [place] [address] Nurse Practitioner Cardiology 06/14/23 documented as of this encounter
--- OUTSIDE RECORDS SUMMARY | 2024-12-09 12:38 | XMS_ITS | Encounter Summary ---
Author Organization [facility] Address [address] [place] [address] Care Team Providers Care Stereotyper Name Role Phone Andrey Eubanks MD Unavailable Unavailable Sumeet Richard MD Primary Care Provider Raymond Dior MD Unavailable [phone] Rema Carbone NP Unavailable Encounter Details Date Type Department Care Team Description 06/14/2023 SCAN Medical Records [address] [place] [address] Abstract, Provider Social History Tobacco Use Types [...] Name Priority Date/Time Associated Diagnosis Comments OUTSIDE LAB Routine 06/14/2023 documented in this encounter Results * OUTSIDE LAB (06/14/2023) Provider Default LAB documented in this encounter Visit Diagnoses Not on filedocumented in this encounter Care Teams Stereotyper Relationship Specialty Start Date End Date Sumeet Richard MD PCP - General Internal Medicine 12/08/21 Andrey Eubanks MD 10/26/17 Raymond Gomez MD [address] [place] [address] [address] [place] [address] General Assignment Reporter Cardiovascular Disease 12/26/22 Rema Carbone NP [address] [place] [address] [address] [place] [address] Nurse Practitioner Cardiology 06/14/23 documented as of this encounter
--- OUTSIDE RECORDS SUMMARY | 2024-12-09 12:38 | XMS_ITS | Encounter Summary ---
Author Organization [facility] Address [address] [place] [address] Care Team Providers Care Top Former Name Role Phone Andrey Eubanks MD Primary Care Provider Andrey Squires MD Unavailable Unavailable Sumeet Richard MD Primary Care Provider Raymond Dior MD Unavailable [phone] Rema Carbone NP Unavailable [phone] Encounter Details Date Type Department Care Team Description 06/12/2019 Release of Information Medical Records [address] [place] [id number] Abstract, Provider Social History Tobacco Use Types [...] on filedocumented in this encounter Care Teams Top Former Relationship Specialty Start Date End Date Andrey Eubanks MD PCP - General Family Practice 10/26/17 12/07/21 Sumeet Richard MD PCP - General Internal Medicine 12/08/21 Andrey Eubanks MD 10/26/17 Raymond Gomez MD [address] [place] [address] [place] [address] Angiography Technologist Cardiovascular Disease 12/26/22 Rema Carbone NP [address] [place] [address] [address] [place] [phone] Nurse Practitioner Cardiology 06/14/23 documented as of this encounter
--- OUTSIDE RECORDS SUMMARY | 2024-12-09 12:38 | XMS_ITS | Encounter Summary ---
Author Organization [facility] Address [address] [place] [address] Care Team Providers Care Manager Field Service Name Role Phone Andrey Eubanks MD Unavailable Unavailable Sumeet Richard MD Primary Care Provider Cheryl Raymond Reyes MD Unavailable [phone] Rema Carbone NP Unavailable [phone] Encounter Details Date Type Department Care Team Description 11/16/2023 SCAN Medical Records [address] [place] [address] Abstract, Provider Social History Tobacco Use Types [...] Name Priority Date/Time Associated Diagnosis Comments OUTSIDE VASCULAR STUDY Routine 11/16/2023 documented in this encounter Results * OUTSIDE VASCULAR STUDY (11/16/2023) Provider Abstract CARDIOLOGY documented in this encounter Visit Diagnoses Not on filedocumented in this encounter Care Teams Manager Field Service Relationship Specialty Start Date End Date Sumeet Richard MD PCP - General Internal Medicine 12/08/21 Andrey Eubanks MD 10/26/17 Raymond Gomez MD [address] [place] [address] [address] [place] [address] Clinical Trial Leader Cardiovascular Disease 12/26/22 Rema Carbone, MATTI [address] [place] [address] [place] [address] Nurse Practitioner Cardiology 06/14/23 documented as of this encounter
--- OUTSIDE RECORDS SUMMARY | 2024-12-09 12:38 | XMS_ITS | Encounter Summary ---
Author Organization [facility] Address [address] [place] [address] Care Team Providers Care Meteorology Faculty Member Name Role Phone Andrey Eubanks MD Primary Care Provider Andrey Squires MD Unavailable Unavailable Sumeet Richard MD Primary Care Provider Raymond Dior MD Unavailable [phone] Rema Carbone NP Unavailable [phone] Encounter Details Date Type Department Care Team Description 04/19/2021 Transportation Refrigeration Technician Report Medical Records [address] [place] [id number] [place] [address] Social History Tobacco Use Types Packs/Day Years [...] on filedocumented in this encounter Care Teams Meteorology Faculty Member Relationship Specialty Start Date End Date Andrey Eubanks MD PCP - General Family Practice 10/26/17 12/07/21 Sumeet Richard MD PCP - General Internal Medicine 12/08/21 Andrey Eubanks MD 10/26/17 Raymond Gomez MD [address] [place] [address] [address] [place] [address] Sewing Pattern Layout Technician Cardiovascular Disease 12/26/22 Rema Carbone NP [address] [place] [address] [address] [place] [id number] Nurse Practitioner Cardiology 06/14/23 documented as of this encounter
--- OUTSIDE RECORDS SUMMARY | 2024-12-09 12:38 | XMS_ITS | Encounter Summary ---
Author Organization [facility] Address [address] [place] [address] Care Team Providers Care Pharmaceutical Scientist Name Role Phone Andrey Eubanks MD Unavailable Unavailable Sumeet Richard MD Primary Care Provider Cheryl Raymond Reyes MD Unavailable [phone] Rema Carbone NP Unavailable [phone] Encounter Details Date Type Department Care Team Description 05/01/2023 Petrographer Report Medical Records [address] [place] [address] Pepe Marshall Social History Tobacco Use Types Packs/Day Years [...] suspected to have Coronavirus/COVID-19? No / Unsure 04/24/2023 2:39 PM EDT documented as of this encounter Plan of Treatment Not on file documented as of this encounter Visit Diagnoses Not on filedocumented in this encounter Care Teams Pharmaceutical Scientist Relationship Specialty Start Date End Date Sumeet Richard MD PCP - General Internal Medicine 12/08/21 Andrey Eubanks MD 10/26/17 Raymond Gomez MD [address] [place] [address] [address] [place] [address] Transitional Studies Instructor Cardiovascular Disease 12/26/22 Rema Carbone, MATTI [address] [place] [address] DR[address] [place] [address] Nurse Practitioner Cardiology 06/14/23 documented as of this encounter
--- OUTSIDE RECORDS SUMMARY | 2024-12-09 12:39 | XMS_ITS | Encounter Summary ---
Author Organization [facility] Address [address] [place] [address] Care Team Providers Care Machine Operator Replanter Name Role Phone Andrey Eubanks MD Unavailable Unavailable Sumeet Richard MD Primary Care Provider Cheryl mimiilable Raymond Gomez MD Unavailable [phone] Rema Carbone NP Unavailable [phone] Encounter Details Date Type Department Care Team Description 04/12/2023 Hospital Medical Records [address] [place], [place] [id number] [place] [address] Social History Tobacco Use Types Packs/Day Years [...] Name Priority Date/Time Associated Diagnosis Comments OUTSIDE PET Routine 04/12/2023 documented in this encounter Results * OUTSIDE PET (04/12/2023) Provider Default RADIOLOGY [facility] documented in this encounter Visit Diagnoses Not on filedocumented in this encounter Care Teams Machine Operator Replanter Relationship Specialty Start Date End Date Sumeet Richard MD PCP - General Internal Medicine 12/08/21 Andrey Eubanks MD 10/26/17 Raymond Gomez MD [address] [place] [address] [address] [place] [address] Wool Grader Cardiovascular Disease 12/26/22 Rema Carbone NP [address] [place] [address] DR[address] [place] [address] Nurse Practitioner Cardiology 06/14/23 documented as of this encounter
--- OUTSIDE RECORDS SUMMARY | 2024-12-09 12:39 | XMS_ITS | Encounter Summary ---
Author Organization [facility] Address [address] [place] [address] Care Team Providers Care Nurse Case Manager Name Role Phone Andrey Eubanks MD Unavailable Unavailable Sumeet Richard MD Primary Care Provider Cheryl Raymond Reyes MD Unavailable [phone] Rema Carbone NP Unavailable [phone] Encounter Details Date Type Department Care Team Description 03/01/2023 SCAN Medical Records [address] [place] [id number] [place] [address] Social History Tobacco Use Types Packs/Day Years [...] on filedocumented in this encounter Care Teams Nurse Case Manager Relationship Specialty Start Date End Date Sumeet Richard MD PCP - General Internal Medicine 12/08/21 Andrey Eubanks MD 10/26/17 Raymond Gomez MD [address] [place] [address] [place] [address] Oil Well Pumper Cardiovascular Disease 12/26/22 Rema Carbone NP [address] [place] [address] [place] [id number] Nurse Practitioner Cardiology 06/14/23 documented as of this encounter
--- OUTSIDE RECORDS SUMMARY | 2024-12-09 12:39 | XMS_ITS | Encounter Summary ---
Author Organization [facility] Address [address] [place] [address] Care Team Providers Care Gambling Counsellor Name Role Phone Andrey Eubanks MD Primary Care Provider Andrey Squires MD Primary Care Provider Andrey Squires MD Unavailable Unavailable Sumeet Richard MD Primary Care Provider Cheryl Raymond Reyes MD Unavailable [phone] Rema Carbone NP Unavailable [phone] Encounter Details Date Type Department Care Team Description 10/27/2014 SCAN Medical Records [address] [place] [address] Julien Rojas MD Social History Tobacco Use Types Packs/Day Years Used Date Smoking Tobacco: Never Assessed Sex Assigned at Date Recorded Not on file Job Start Date Occupation Industry Not on file Not on file Not on file documented as of this encounter Plan of Treatment Not on file documented as of this encounter Procedures Procedure Name Priority Date/Time Associated Diagnosis Comments OUTSIDE SLEEP STUDY Routine 10/27/2014 documented in this encounter Results * OUTSIDE SLEEP STUDY (10/27/2014) Provider Default PULMONOLOGY documented in this encounter Visit Diagnoses Not on filedocumented in this encounter Care Teams Gambling Counsellor Relationship Specialty Start Date End Date Andrey Eubanks MD PCP - General 06/25/12 10/25/17 Andrey Eubanks MD PCP - General Family Practice 10/26/17 12/07/21 Sumeet Richard MD PCP - General Internal Medicine 12/08/21 Andrey Eubanks MD 10/26/17 Raymond Gomez MD [address] [place] [address] Health Coordinator Cardiovascular Disease 12/26/22 Rema Carbone NP [address] [place] [address] [address] [place] [address] Nurse Practitioner Cardiology 06/14/23 documented as of this encounter
--- OUTSIDE RECORDS SUMMARY | 2024-12-09 12:39 | XMS_ITS | Encounter Summary ---
Author Organization [facility] Address [address] [place] [address] Care Team Providers Care Spray Technician Name Role Phone Andrey Eubanks MD Unavailable Unavailable Sumeet Richard MD Primary Care Provider Cheryl Raymond Reyes MD Unavailable [phone] Rema Carbone NP Unavailable [phone] Reason for Visit * Reason Onset Date Comments Prior Authorization 02/20/2024 Encounter Details Date Type Department Care Team Description 02/20/2024 Telephone Endocrinology - [address] [address] Sarah Gutiérrez MD [address] [place] [address] Prior Authorization Social History Tobacco Use Types Packs/Day Years [...] encounter Miscellaneous Notes * Telephone Encounter - Linda Puri - 02/20/2024 11:22 AM EDT Prior Authorization for Medication-do not complete and send this encounter unless you have the fax from the pharmacy. Is this a Cover My Meds request: Yes -- Prince Code [id number] Name of Medication CONTOUR NEXT TEST STRIPS Dose of Medication N/A What is the RX # from the faxed refill? N/A How does patient take this med? Check sugars 1-2 times a day What Pharmacy did the fax come from: [phone] Pharmacy fax #: [phone] documented in this encounter Plan of Treatment Not on file documented as of this encounter Visit Diagnoses Not on filedocumented in this encounter Care Teams Spray Technician Relationship Specialty Start Date End Date Sumeet Richard MD PCP - General Internal Medicine 12/08/21 Andrey Eubanks MD 10/26/17 Raymond Gomez MD [address] [place] [address] [address] [place] [address] Dovetail Machine Operator Cardiovascular Disease 12/26/22 Rema Carbone NP [address] [place] [address] DR[address] [place] [address] Nurse Practitioner Cardiology 06/14/23 documented as of this encounter
--- OUTSIDE RECORDS SUMMARY | 2024-12-09 12:39 | XMS_ITS | Encounter Summary ---
Author Organization [facility] Address [address] [place] [address] Care Team Providers Care Broadcast Journalist Name Role Phone Andrey Eubanks MD Unavailable Unavailable Sumeet Richard MD Primary Care Provider Cheryl Raymond Reyes MD Unavailable [phone] Rema Carbone NP Unavailable [phone] Encounter Details Date Type Department Care Team Description 04/04/2023 SCAN Medical Records [address] [place] [address] Abstract, Provider Social History Tobacco Use Types [...] suspected to have Coronavirus/COVID-19? No / Unsure 03/06/2023 10:13 AM EDT documented as of this encounter Plan of Treatment Not on file documented as of this encounter Procedures Procedure Name Priority Date/Time Associated Diagnosis Comments OUTSIDE EKG Routine 04/04/2023 OUTSIDE PLAIN FILM Routine 04/04/2023 OUTSIDE LAB Routine 04/04/2023 documented in this encounter Results * OUTSIDE PLAIN FILM (04/04/2023) Provider Abstract RADIOLOGY * OUTSIDE LAB (04/04/2023) Provider Abstract LAB * OUTSIDE EKG (04/04/2023) Provider Abstract CARDIOLOGY documented in this encounter Visit Diagnoses Not on filedocumented in this encounter Care Teams Broadcast Journalist Relationship Specialty Start Date End Date Sumeet Richard MD PCP - General Internal Medicine 12/08/21 Andrey Eubanks MD 10/26/17 Raymond Gomez MD [address] [place] [address] [address] [place] [address] Hvac Sheet Metal Installer Cardiovascular Disease 12/26/22 Rema Carbone NP [address] [place] [address] [address] [place] [address] Nurse Practitioner Cardiology 06/14/23 documented as of this encounter
--- OUTSIDE RECORDS SUMMARY | 2024-12-09 12:39 | XMS_ITS | Encounter Summary ---
Author Organization [facility] Address [address] [place] [address] Care Team Providers Care Bridge Manager Name Role Phone Andrey Eubanks MD Unavailable Unavailable Sumeet Richard MD Primary Care Provider Cheryl vailable Raymond Gomez MD Unavailable [phone] Rema Carbone NP Unavailable [phone] Reason for Visit * Reason Onset Date Comments Testing 03/07/2023 PET SCAN Encounter Details Date Type Department Care Team Description 03/07/2023 Telephone Cardio PVC POC [address] [place] [address] Raymond Gomez MD [address] [place] [address] [address] [place] [address] Testing (PET SCAN ) Social History Tobacco Use Types Packs/Day Years [...] AM EDT documented as of this encounter Miscellaneous Notes * Telephone Encounter - Elvi Silva - 03/07/2023 9:08 AM EDT [facility], PET order, last office note and any recent testing faxed to [facility] documented in this encounter Plan of Treatment Not on file documented as of this encounter Visit Diagnoses Not on filedocumented in this encounter Care Teams Bridge Manager Relationship Specialty Start Date End Date Sumeet Richard MD PCP - General Internal Medicine 12/08/21 Andrey Eubanks MD 10/26/17 Raymond Gomez MD [address] [place] [address] [address] [place] [address] Clinic Physician Cardiovascular Disease 12/26/22 Rema Carbone NP [address] [place] [address] [address] [place] [address] Nurse Practitioner Cardiology 06/14/23 documented as of this encounter
--- OUTSIDE RECORDS SUMMARY | 2024-12-09 12:39 | XMS_ITS | Encounter Summary ---
Author Organization [facility] Address [address] [place] [address] Care Team Providers Care Captain/Check Airman Name Role Phone Andrey Eubanks MD Unavailable Unavailable Sumeet Richard MD Primary Care Provider Cheryl mimiilable Raymond Gomez MD Unavailable [phone] Rema Carbone NP Unavailable [phone] Encounter Details Date Type Department Care Team Description 04/19/2022 Edging Machine Operator Report Medical Records [address] [place] [address] [facility] [address] [place] [address] Social History Tobacco Use Types Packs/Day Years [...] on filedocumented in this encounter Care Teams Captain/Check Airman Relationship Specialty Start Date End Date Sumeet Richard MD PCP - General Internal Medicine 12/08/21 Andrey Eubanks MD 10/26/17 Raymond Gomez MD [address] [place] [address] [place] [address] Assistant Professor Of Biology Cardiovascular Disease 12/26/22 Rema Carbone NP [address] [place] [address] [address] [place] [address] Nurse Practitioner Cardiology 06/14/23 documented as of this encounter
--- OUTSIDE RECORDS SUMMARY | 2024-12-09 12:39 | XMS_ITS | Encounter Summary ---
Author Organization [facility] Address [address] [place] [address] Care Team Providers Care Animal Researcher Name Role Phone Andrey Eubanks MD Unavailable Unavailable Sumeet Richard MD Primary Care Provider Cheryl Raymond Reyes MD Unavailable [phone] Rema Carbone NP Unavailable [phone] Encounter Details Date Type Department Care Team Description 03/06/2023 SCAN Medical Records [address] [place] [id number] [place] [address] Social History Tobacco Use Types Packs/Day Years [...] on filedocumented in this encounter Care Teams Animal Researcher Relationship Specialty Start Date End Date Sumeet Richard MD PCP - General Internal Medicine 12/08/21 Andrey Eubanks MD 10/26/17 Raymond Gomez MD [address] [place] [address] [address] [place] [address] Power Brake Operator Cardiovascular Disease 12/26/22 Rema Carbone, MATTI [address] [place] [address] [address] [place] [address] Nurse Practitioner Cardiology 06/14/23 documented as of this encounter
--- OUTSIDE RECORDS SUMMARY | 2024-12-09 12:39 | XMS_ITS | Data Portability ---
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 demonstrate no evidence of fracture. [facility] reviewed today demonstrates a full-thickness supraspinatus tear with retraction to the labrum with mild atrophy. Infraspinatus tendinopathy with low-grade articular surface tear and mild atrophy. Advanced subscapularis tendinopathy. There is partial tearing and tendinopathy of the proximal biceps tendon. Moderate AC joint osteoarthritis. Mild glenohumeral joint osteoarthritis. [facility] elbow07/27/24 independently reviewed today demonstrates: Distal triceps and biceps intact. Appears to be a myotendinous strain of the biceps without tendon tear. Muscular strain of the brachial radialis. Mild tendinopathy of the common flexor tendon. Chronic appearing moderate intrasubstance tear of the common extensor tendon at the humeral attachment. There is subcutaneous edema along the medial aspect of the elbow. Ulnar nerve appears intact in the groove. Mild joint effusion. 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 Exam and imaging reassuring that there is no proximal biceps or triceps rupture. Discussed it is likely he ruptured his proximal biceps and due to being on a blood thinner had significant ecchymosis and subcutaneous edema down to his elbow. Recommended gentle shoulder pendulum exercises and range of motion exercises which were demonstrated today. Recommended gentle elbow range of motion and strengthening which were demonstrated and explained today. We will follow-up as needed in 6 weeks for recheck. Recommended no heavy lifting or weightbearing with the left upper extremity. All of his concerns are addressed and he understands and agrees with the plan. Speech recognition reconcilement clerk software was used to create portions of this document. An attempt at proofreading has been made to minimize errors. Please call for corrections. Madeleine Horne PA-C [address] [place] [address] [address], [place], [address], [facility] [place] [facility] 08/11/2024 11:31:28 09/26/2024 text/html I am seeing the patient today under the supervision of {{Deepak mata#}} who was available but did not see the patient. CLINICAL UPDATE: 68-year-old Malawian-speaking only male patient presents today for left elbow recheck. He continues to have biceps deformity, his pain is more towards the medial aspect of the elbow.For his shoulder, if he should need surgical intervention he has seen Dr. Heredia in the past. Last left shoulder cortisone injection 07/02/24. HPI: Presented 07/24/24 with significant left biceps pain and bruising. [employer] service used for appointment today. He reports 07-18-24 he held a door open, the wind pulled it and his arm got pulled with it. He notices a deformity in the biceps tendon and has pain down by his elbow with reduced elbow ROM and weakness. Patient reports he is on blood thinners. Unable to take NSAIDs. Tylenol provides minimal relief. Past family, medical, social history and review of systems has been reviewed, updated and is located in the patient's chart. PHYS EXAM:Alert and oriented. No acute distress.Left upper extremity: Dru deformity likely from proximal biceps rupture, mildly tender to palpation about the mid-medial biceps. Tender to palpation about the medial epicondyle with soft tissue swelling noted. Non-tender to palpation about the distal biceps and triceps and tendons palpated. Pain with resisted elbow flexion and extension, with adequate strength. Nontender to palpation about the shoulder and proximal biceps tendon. Limited shoulder range of motion with pain and reduced ROM, this is his baseline. Hand is warm and well-perfused. Axillary nerve sensation intact. X-RAYS:Previous 4v x-rays of the {{Right Left* Bilatera l}} shoulder and 2v left elbow reviewed at [facility] today. Left shoulder demonstrates severe AC joint degenerative changes, type III acromion, mild glenohumeral joint space narrowing. 3v of the left elbow demonstrate no evidence of fracture. [facility] reviewed today demonstrates a full-thickness supraspinatus tear with retraction to the labrum with mild atrophy. Infraspinatus tendinopathy with low-grade articular surface tear and mild atrophy. Advanced subscapularis tendinopathy. There is partial tearing and tendinopathy of the proximal biceps tendon. Moderate AC joint osteoarthritis. Mild glenohumeral joint osteoarthritis. [facility] reviewed today demonstrates: Distal triceps and biceps intact. Appears to be a myotendinous strain of the biceps without tendon tear. Muscular strain of the brachial radialis. Mild tendinopathy of the common flexor tendon. Chronic appearing moderate intrasubstance tear of the common extensor tendon at the humeral attachment. There is subcutaneous edema along the medial aspect of the elbow. Ulnar nerve appears intact in the groove. Mild joint effusion. 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 Exam and imaging reassuring that there is no distal biceps or triceps rupture. Discussed it is likely he ruptured his proximal biceps and due to being on a blood thinner had significant ecchymosis and subcutaneous edema down to his elbow. Recommended gentle shoulder pendulum exercises and range of motion exercises which were demonstrated today. Recommended gentle elbow range of motion and strengthening which were demonstrated and explained today. Recommended no heavy lifting or weightbearing with the left upper extremity. He was previously evaluated for his left shoulder by Dr. Heredia, if he should need shoulder surgery would defer to Dr. Heredia. However, he has been treating his left shoulder pain well with cortisone injections up until recent injury of his left elbow. Most of his pain is localized to the medial aspect of the left elbow today, recommended second opinion evaluation with Dr. Costa for his elbow. All of his concerns are addressed and he understands and agrees with the plan. Speech recognition reconcilement clerk software was used to create portions of this document. An attempt at proofreading has been made to minimize errors. Please call for corrections. Madeleine Horne PA-C [address] [facility] [address], [place], [address], [facility] [place] [facility] 09/26/2024 09:33:34 09/30/2024 text/html CLINICAL UPDATE: 68-year-old [place]awian-speaking only male patient presents today for left elbow recheck. He continues to have biceps Pain, his pain is more towards the medial aspect of the Muscle belly of the biceps. For his shoulder, if he should need surgical intervention he has seen Dr. Heredia in the past. Last left shoulder cortisone injection 07/02/24. HPI: Presented 07/24/24 with significant left biceps pain Bruising has resolved. Contour appears to be intact. [employer] service used for appointment today. He reports 07-18-24 he held a door open, the wind pulled it and his arm got pulled with it. He notices a deformity in the biceps tendon and has pain down by his elbow with reduced elbow ROM and weakness. Patient reports he is on blood thinners. Unable to take NSAIDs. Tylenol provides minimal relief. Past family, medical, social history and review of systems has been reviewed, updated and is located in the patient's chart. PHYS EXAM:Alert and oriented. No acute distress.Left upper extremity: Dru deformity likely from proximal biceps rupture, mildly tender to palpation about the mid-medial biceps. Tender to palpation about the medial epicondyle with soft tissue swelling noted. Non-tender to palpation about the distal biceps and triceps and tendons palpated. Pain with resisted elbow flexion and extension, with adequate strength. Nontender to palpation about the shoulder and proximal biceps tendon. Limited shoulder range of motion with pain and reduced ROM, this is his baseline. Hand is warm and well-perfused. Axillary nerve sensation intact. HEENT- unremarkableHeart -RRR without murmur's, rubs, gallopsAbdomen- soft non-tender, non distended, positive bowel signsLungs clear bilalterallyno skin lesionsintact light touch, distal pulses, and reflex X-RAYS:Previous 4v x-rays of the {{Right Left* Bilatera l}} shoulder and 2v left elbow reviewed at Left shoulder demonstrates severe AC joint degenerative changes, type III acromion, mild glenohumeral joint space narrowing. 3v of the left elbow demonstrate no evidence of fracture. [facility] reviewed today demonstrates a full-thickness supraspinatus tear with retraction to the labrum with mild atrophy. Infraspinatus tendinopathy with low-grade articular surface tear and mild atrophy. Advanced subscapularis tendinopathy. There is partial tearing and tendinopathy of the proximal biceps tendon. Moderate AC joint osteoarthritis. Mild glenohumeral joint osteoarthritis. [facility] elbow07/27/24 independently reviewed today demonstrates: Distal triceps and biceps intact. Appears to be a myotendinous strain of the biceps without tendon tear. Muscular strain of the brachial radialis. Mild tendinopathy of the common flexor tendon. Chronic appearing moderate intrasubstance tear of the common extensor tendon at the humeral attachment. There is subcutaneous edema along the medial aspect of the elbow. Ulnar nerve appears intact in the groove. Mild joint effusion. 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 Exam and imaging reassuring that there is no distal biceps or triceps rupture. Discussed it is likely he ruptured his proximal biceps and due to being on a blood thinner had significant ecchymosis and subcutaneous edema down to his elbow. Recommended gentle shoulder pendulum exercises and range of motion exercises which were demonstrated today. Recommended gentle elbow range of motion and strengthening which were demonstrated and explained today. Recommended no heavy lifting or weightbearing with the left upper extremity. We discussed that there is not likely intervention required for his left elbow injury. Offered him physical therapy which he declined. We will try and manage this conservatively. Understands that if he continues to have complaints or issues with his left shoulder he will follow up with Dr. Giovanna thompson. Beau Costa MD [facility] [address], [place], [address], [facility] [place] [facility] 09/30/2024 16:00:04 11/12/2024 text/html I am seeing the patient today under the supervision of . {{Deepak Ivan*} } who was available but did not see the patient. CLINICAL UPDATE: 68-year-old [place]ian-speaking only male patient presents today for left elbow and shoulder recheck. He continues to have biceps deformity, but his pain has improved in his elbow. Dr. Costa did not recommend any additional treatment.For his shoulder, if he should need surgical intervention he has seen Dr. Heredia in the past. Last left shoulder cortisone injection 07/02/24 provided good relief. Localizes pain to the lateral brachiuum and proximal biceps. HPI: Presented 07/24/24 with significant left biceps pain and bruising. [employer] service used for appointment today. He reports 07-18-24 he held a door open, the wind pulled it and his arm got pulled with it. He notices a deformity in the biceps tendon and has pain down by his elbow with reduced elbow ROM and weakness. Patient reports he is on blood thinners. Unable to take NSAIDs. Tylenol provides minimal relief. Past family, medical, social history and review of systems has been reviewed, updated and is located in the patient's chart. PHYS EXAM:Alert and oriented. No acute distress. Gait is symmetric.Left upper extremity: Chronic Dru deformity likely from proximal biceps rupture, mildly tender to palpation about the mid-proximal biceps. Non-tender to palpation about the distal biceps and triceps and tendons palpated. Pain with resisted elbow flexion and extension, with adequate strength. Nontender to palpation about the shoulder and proximal biceps tendon. Limited shoulder range of motion with pain and reduced ROM, this is his baseline. Hand is warm and well-perfused. Axillary nerve sensation intact. X-RAYS:Previous 4v x-rays of the {{Right Left* Bilatera l}} shoulder and 2v left elbow reviewed at [facility] today. Left shoulder demonstrates severe AC joint degenerative changes, type III acromion, mild glenohumeral joint space narrowing. 3v of the left elbow demonstrate no evidence of fracture. [facility] reviewed today demonstrates a full-thickness supraspinatus tear with retraction to the labrum with mild atrophy. Infraspinatus tendinopathy with low-grade articular surface tear and mild atrophy. Advanced subscapularis tendinopathy. There is partial tearing and tendinopathy of the proximal biceps tendon. Moderate AC joint osteoarthritis. Mild glenohumeral joint osteoarthritis. [facility] reviewed today demonstrates: Distal triceps and biceps intact. Appears to be a myotendinous strain of the biceps without tendon tear. Muscular strain of the brachial radialis. Mild tendinopathy of the common flexor tendon. Chronic appearing moderate intrasubstance tear of the common extensor tendon at the humeral attachment. There is subcutaneous edema along the medial aspect of the elbow. Ulnar nerve appears intact in the groove. Mild joint effusion. 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 Exam and imaging reassuring that there is no distal biceps or triceps rupture. Discussed it is likely he ruptured his proximal biceps and due to being on a blood thinner had significant ecchymosis and subcutaneous edema down to his elbow. Recommended gentle shoulder pendulum exercises and range of motion exercises which were demonstrated today. Recommended gentle elbow range of motion and strengthening which were demonstrated and explained today. Recommended no heavy lifting or weightbearing with the left upper extremity. He was previously evaluated for his left shoulder by Dr. Heredia, if he should need shoulder surgery would defer to Dr. Heredia. However, he has been treating his left shoulder pain well with cortisone injections up until recent injury of his left elbow. He elected to proceed with repeat left shoulder cortisone injection today. All of his concerns are addressed and he understands and agrees with the plan. Speech recognition reconcilement clerk software was used to create portions of this document. An attempt at proofreading has been made to minimize errors. Please call for corrections. Madeleine Horne PA-C [address] [place] [address] [address], [place], [address], [facility] [place] [facility] 11/12/2024 10:22:16
--- OUTSIDE RECORDS SUMMARY | 2024-12-09 12:39 | XMS_ITS | Encounter Summary ---
Author Organization [facility] Address [address] [place] [address] Care Team Providers Care Gospel Worker Name Role Phone Andrey Eubanks MD Unavailable Unavailable Sumeet Richard MD Primary Care Provider Cheryl Raymond Reyes MD Unavailable [phone] Rema Carbone NP Unavailable [phone] Encounter Details Date Type Department Care Team Description 01/10/2023 Mobility Developer Report Medical Records [address] [place] [id number] Abstract, Provider Social History Tobacco Use Types [...] on filedocumented in this encounter Care Teams Gospel Worker Relationship Specialty Start Date End Date Sumeet Richard MD PCP - General Internal Medicine 12/08/21 Andrey Eubanks MD 10/26/17 Raymond Gomez MD [address] [place] [address] [place] [id number] Network Mgr Cardiovascular Disease 12/26/22 Rema Carbone NP [address] [place] [address] [place] [id number] Nurse Practitioner Cardiology 06/14/23 documented as of this encounter
== END 2024-12-09 11:19 | disposition home or self-care (01) ==
LOC: HO.HPS 10:55
PROVIDERS: PCP Pediatrics; Visit Provider Hospitalist
DX: J44.0 Chronic obstructive pulmonary disease with (acute) lower respiratory infection (principal); G47.33 Obstructive sleep apnea (adult) (pediatric); Z99.89 Dependence on other enabling machines and devices; J30.9 Allergic rhinitis, unspecified; R06.09 Other forms of dyspnea; E27.40 Unspecified adrenocortical insufficiency; J40 Bronchitis, not specified as acute or chronic
CPT/HCPCS: 99214; G2211

== ENCOUNTER → 2024-12-09 10:54 | Outpatient (BNVA) | payer OTHER, SELFPAY | PROVIDERS: PCP Pediatrics; Visit Provider Hospitalist | DX: J44.0 Chronic obstructive pulmonary disease with (acute) lower respiratory infection (principal); J40 Bronchitis, not specified as acute or chronic; J30.9 Allergic rhinitis, unspecified; G47.33 Obstructive sleep apnea (adult) (pediatric); R06.09 Other forms of dyspnea; E27.40 Unspecified adrenocortical insufficiency; Z99.89 Dependence on other enabling machines and devices | CPT/HCPCS: 99212 ==

== ENCOUNTER 2025-06-08 10:49 | Outpatient (AMB) | payer OTHER, SELFPAY ==
[2025-06-08 10:52] VITALS: BP 114/60; PULSE 60; O2SAT 98; BMI 30.6
--- NOTE | 2025-06-08 10:52 | A.OFFVIS_ITS ---
Vital Signs 06/08/25 10:52 Height 5 ft 6 in Weight 189 lb 9.561 oz BMI 30.6 BP 114/60 Blood Pressure Location Lt brachial Position Sitting Pulse 60 Pulse Source Pulse Oximeter Pulse Oximetry (%) 98 Oxygen Delivery Method Room Air Intake Visit Reasons: COPD Environmental Sustainability Manager Required: No Accompanied by: Self / Same As Patient Allergies ibuprofen Allergy (Mild, Verified 06/08/25 10:55) Rash penicillin V Allergy (Mild, Verified 06/08/25 10:55) Rash HPI Comments Details: Patient is a 69-year-old gentleman known moderate persistent asthma and EDUARDO on CPAP. He had been controlled on his respiratory medications and his nebulizer, but, he ran out of the medications. He did not have any follow-ups. He has been having worsening shortness of breath and wheezing. He has been waking up short of breath and coughing at nighttime. He has been noticing significant nasal congestion and cough as well. He has been developing increasing shortness of breath due to the chest tightness. Overall he is doing well with his current respiratory regimen increasing Symbicort and ProAir. He did also respond very nicely to the Claritin. He has significant allergies at this time. 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 Otherwise he is doing well. Does have coughing at times intermittently. Has not had to use his rescue inhaler more than twice a week. She was 04/25/2021 the patient is here for pulmonary follow-up visit. He has been having worsening respiratory symptoms. Has been having shortness of breath and chest tightness moderate severity. Also congestion in the chest area with increased mucus production. This has been the case specially since he has not been able to get his maintenance medication. He has responded well to Symbicort in the past. Therefore, will plan to send this SIRENA for him to be able to start respite respiratory therapy. 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 He continues uses CPAP. The CPAP therapy continues to be affecting beneficial. He does use it for more than 4 hours a night. He still waiting to get new supplies as he is waiting for the new mask F30 2 in that is waiting for his [employer] company to approve. 02/23/2022 the patient is here for a pulmonary follow-up visit. Overall he is doing well from a respiratory status. He feels that his respiratory symptoms have dramatically improved after he was diagnosed with adrenal insufficiency and started on therapy. He is now off the Trelegy as he was causing her to have adverse effects and is tolerating just the Flovent just as well. His hoarseness is better. He does have significant nasal congestion. Typically in the morning. We talked about the importance of nasal rinsing prior to putting on the CPAP. Also, having get some allergy testing to address any other allergic reactions. He recently was stung by bee and resulted in significant amount of inflammation. The patient's CPAP therapy has been affecting beneficial. He has been tolerating the therapy well. The F 30 mask has been very comfortable for him. His DME company will have to change due to contracture agreements with his insurance company. 07/13/2022 the patient is here for pulmonary follow-up visit. He complains of wo rsening dyspnea on exertion. Moderate severity. Mainly with activity. Has been a Symbicort initially. Although, looking at his inhalers he is only taking Flovent in a rescue inhaler. She the rescue inhaler does help him. We did go for brief walking oximetry in the patient did have some difficulty with restlessness and appear to have some audible wheezing. The patient also has been using his CPAP. The CPAP therapy continues to be affecting beneficial. He does use it for more than 4 hours a night. He did have to switch DME companies because of contracture agreements with his insurance company. They did require a repeat sleep study. He did have a home sleep study. Demonstrated an AHI of 2.5 which is not significant. Although at this point I do believe the patient has significant sleep apnea and I do not believe that test was accurate. Therefore the patient will require in-lab study to further address the question of sleep apnea in continue to uses CPAP. The patient will go undergo a chest x- ray and we will try him on Breztri. The the patient already has hoarseness and he does not tolerate powdered inhalers. Will have the patient return after his sleep study. 09/15/2022 the patient is here for a pulmonary follow-up visit. The patient has been having worsening chest tightness and shortness of breath. He has been using the Symbicort twice a day with partial resolution of the symptoms. He also has been using his rescue medication through the nebulizer. He does need a rescue inhaler. The patient also has been using the CPAP. He the CPAP therapy continues to be very affecting beneficial for him. He does have a fullface mask and unfortunately the head gear is broken. He uses the F 30. Unfortunately I do not have want to give him. He does have tape with right now. He did have a sleep study. Waiting for the results. Once the patient gets active with the [employer] will start getting supplies for his CPAP. The patient does need to continue with PAP therapy at this time. He is also describing some dyspnea and chest pressure on exertion. Explained to him that this may be related to his underlying asthma although we need to consider other etiologies including cardiac or pulmonary vascular conditions. He did have a cardiac stress echo test done about 2 years ago that was reassuring. He denies ever having blood clots. In view of the symptoms I did have him do a brief walking oximetry in his oxygen did drop to the mid 90s. Therefore, have him get some blood work including a D-dimer and also a chest x-ray. If the D-dimer comes back positive the new need a CTA to rule out thromboembolic disease. 12/04/2022 the patient is here for pulmonary follow-up visit. Since we last spoke he did have a CTA that was negative for any pulmonary emboli although his lower extremity Dopplers ordered by his primary care was positive for DVT. He has been on anticoagulation. In the meantime his breathing has improved since being on the anticoagulation which is reassuring. The patient also did get his new APAP. The rest med AirSense 11 is working very well for him. His AHI is down to 0.1. He is using more than 4 hours a night. Typically averaging between 6- 7. I did increase the pressure some from 5 cm to 6 cm the minimum pressure and change them maximum pressure to 14 cm. He is tolerating well the therapy has been affecting beneficial. He is also using his inhalers as prescribed. No exacerbations. Has not had to use his rescue inhaler. We did review his CTA no evidence of any pulmonary nodules which is reassuring. He does have moderate degree of emphysema and also has some minimal basilar peripheral scarring. 11/13/2023 the patient is here for a pulmonary follow-up visit. Overall the patient has been doing well. He is status post CABG x3 back in the fall 2022. The surgery went well. He is recovering well from a respiratory status. Also from a cardiac status. He does continue to use his CPAP. CPAP therapy contin ues to be affecting beneficial. His pressures at the same. He continues to get supplies readily. Patient has a relatively new machine. In addition to that has been using his inhaler therapy. He needs to get refills. I will send him to the pharmacy. He is complaining of increasing allergy symptoms nasal congestion. He did respond to Zyrtec. Will go ahead and send him Astelin nasal spray to see this provides him with some more direct intervention to his nasal passages. Patient understands has a bad taste any has to use it a certain way. In addition to that he had a CT scan of the chest at [facility] back in May 2023 which we personally reviewed. He does have multiple pulmonary nodules 1 that is measuring about 4 mm in size. Has a subsolid component. The patient does need a follow-up sometime in the fall 2023. He will follow-up with me sometime after that CT scan. If the patient has any worsening issues prior to that he will call for an earlier assessment. 07/15/2024 the patient is here for a pulmonary follow-up visit. Overall he is doing well. He continues uses CPAP every night. CPAP therapy continues to be affecting beneficial. He does use an F30 mask and he gets his supplies from [employer]. Does been affecting beneficial. In the meantime he does complaint of some dyspnea on exertion. He does have underlying COPD. We did review his last CT scan demonstrating moderate degree of emphysema. Will have him repeat his pulmonary function studies the next visit. In the meantime he has been taking Incruse and has not been using any combination inhalers. Therefore, will switch him from Incruse to Anoro at this time to provide him with the best bronchodilation. Hold off on any inhaled steroids specially with his hoarseness. Follow-up after his PFTs. 12/09/2024 the patient is here for pulmonary follow-up visit. Overall the patient has been doing good. Has been having worsening cough still. Some chest congestion. The patient has been using his respiratory therapy. Ran out of the Anoro so therefore his primary care sent to the pharmacy. He has not seen much improvement after starting the medication. The patient does have a congested cough. Personally more bronchitis. Likely postviral. Will go ahead and treat him with doxycycline. In addition to that will go ahead and add Arnuity to his Anoro to optimize his respiratory therapy. At the patient is no better he will call. He did have a CT scan back in June 2024 demonstrating no acute disease. And he also continues with CPAP therapy. CPAP therapy continues to be affecting beneficial. He does use it for more than 4 hours a night. 06/08/2025 the patient is here for a pulmonary follow-up visit. Overall he is doing okay although he is complaining of shortness breath and chest discomfort. Feels like the symptoms he had when he was initially diagnosed with a heart disease. He is concerned about the findings. He has talk to his hand etcher to make sure that he has a follow-up testing. In the meantime he will undergo an EKG and also some blood work. The patient also complains of chest congestion shortness of breath. He continues on the Arnuity and also continues in the Anoro daily. He was taking some prednisone that he had around they did help him. But he knows it is not good specially since he was diagnosed with I believe a gastric ulcer or gastritis. Therefore he had to stop all steroids and ibuprofen. Will go ahead and start him on Daliresp with the hope of decreasing his chronic bronchitis and decreasing his prednisone need and helping him overall. I will send a prescription to the pharmacy and was started slowly until he developed tolerance to take it daily. In addition to that he continues with the CPAP. CPAP therapy continues to be affecting beneficial. He continues use it for more than 4 hours. Although the mask is bothering him as it is having significant leakage. He does like the F30 type of mask. I will request an F 40 mask effective face from his company, [employer]. The patient follow-up in 6 months if he has any issues prior to that he will call for further recommendations. COUNT INCLUDES THE [facility] Medical History (Updated 06/08/25 @ 20:39 by Geo Martinez MD) Pulmonary nodule DVT (deep venous thrombosis) Adrenal insufficiency Chest discomfort Dyspnea EDUARDO (obstructive sleep apnea) Adrenal cortex hypofunction Hypoglycemia Depression COPD (chronic obstructive pulmonary disease) Dyslipidemia Hypertension CAD (coronary artery disease) Diabetes type 2, controlled Chronic allergic rhinitis EDUARDO on CPAP Asthma Surgical History History of back surgery Hx of percutaneous transluminal coronary angioplasty Family History Father Asthma Mother Heart disease Diabetes Social History Household Members: Spouse Household Members Other:: Alcohol intake: current Alcohol intake frequency: does not drink Patient Tobacco Use Status: Former Tobacco user Years Smoked: 34 years Review of Systems Const Denies chills, Denies fatigue, Denies fever(s), Denies weight gain and Denies weight loss ENT Denies dizziness, Denies lip swelling and Denies tongue swelling Card Denies chest pain, Denies leg edema, Denies lightheadedness, Denies palpitations, Denies dyspnea on exertion, Denies orthopnea and Denies other Resp Reports chest congestion, Reports cough, Denies dyspnea on exertion and Denies wheezing GI Denies hematochezia and Denies change in stool character Musc Denies abnormal gait, Denies muscle weakness, Denies numbness, Denies radiating pain into limb and Denies tingling Neuro Denies abnormal gait, Denies dizziness, Denies numbness and Denies tingling Psych Denies no additional complaints Endo Denies fatigue and Denies palpitations Kenny/Lymph Denies easy bleeding and Denies lymphadenopathy Aller/Immun Denies lip swelling, Denies tongue swelling and Denies wheezing Physical Exam Vital Signs: Last Vital Signs Pulse 60 06/08/25 10:52 BP 114/60 06/08/25 10:52 Pulse Ox 98 06/08/25 10:52 Oxygen Delivery Method Room Air 06/08/25 10:52 BMI result Body Mass Index 30.6 Const General: alert HEENT General nose exam: Abnormal external nose present and Nasal discharge present Eyes Pupils: Equal, round and reactive pupils present Neck Neck: Yes normal visual inspection, Yes full ROM and Yes no lymphadenopathy Chest Chest palpation & inspection: normal inspection of the chest Resp Effort & Inspection: normal respiratory effort and Actively coughing Quality: productive Auscultation: no wheezes and diminished lung sounds Cardio Rate: regular rate Rhythm: regular rhythm Heart sounds: S1 normal heart sound present and S2 normal heart sound present GI Palpation (GI): Soft to palpation and nontender Auscultation: normal bowel sounds General: Yes no CVA tenderness Back/Spine/Pelvis Back: no CVA tenderness Skin General skin exam: rashes and/or lesions noted Neuro Cranial nerves: Yes Equal, round and reactive pupils present Assessment & Plan Assessment & Plan (1) EDUARDO on CPAP: Code(s): G47.33 - Obstructive sleep apnea (adult) (pediatric); Z99.89 - Dependence on other enabling machines and devices Category: Medical Plan: conitnue CPAP therapy (2) Chronic allergic rhinitis: Code(s): J30.9 - Allergic rhinitis, unspecified Category: Medical Plan: anti histamine therapy (3) Dyspnea: Code(s): R06.00 - Dyspnea, unspecified Category: Medical Qualifiers: Dyspnea type: dyspnea on exertion Qualified Code(s): R06.09 - Other forms of dyspnea (4) Adrenal insufficiency: Code(s): E27.40 - Unspecified adrenocortical insufficiency Category: Medical (5) Bronchitis: Code(s): J40 - Bronchitis, not specified as acute or chronic Category: Medical (6) Asthma: Code(s): J45.909 - Unspecified asthma, uncomplicated Category: Medical Qualifiers: Asthma severity: moderate Asthma persistence: persistent Asthma complication type: uncomplicated Qualified Code(s): J45.40 - Moderate persistent asthma, uncomplicated (7) Pulmonary nodule: Code(s): R91.1 - Solitary pulmonary nodule Category: Medical Plan continue Arnuity continue Anoro daily THEO as needed Continue APAP nightly, adjusted pressures 6-14. Doing very well, F30 [facility]-->change to F40 start Daliresp Bloodwork EKG nasal rinsing astelin nasal spray fluticasone nasal spray in the morning ipratropium nasal spray as needed cardiology F/U follow-up in 3-4 months Orders: Orders Troponin-I High Sensitivity Today J40 - Bronchitis, not specified as acute or chronic, J45.909 - Unspecified asthma, uncomplicated, R91.1 - Solitary pulmonary nodule Immunoglobulin E Today J40 - Bronchitis, not specified as acute or chronic, J45.909 - Unspecified asthma, uncomplicated, R91.1 - Solitary pulmonary nodule Erythrocyte Sedimentation Rate Today J40 - Bronchitis, not specified as acute or chronic, J45.909 - Unspecified asthma, uncomplicated, R91.1 - Solitary pulmonary nodule ECG 12 lead EKG Today J44.9 - Chronic obstructive pulmonary disease, unspecif ied Complete Blood Count Auto Diff Today J40 - Bronchitis, not specified as acute or chronic, J45.909 - Unspecified asthma, uncomplicated, R91.1 - Solitary pulmonary nodule Hypersensitive Pneumonitis Prf Today J40 - Bronchitis, not specified as acute or chronic, J45.909 - Unspecified asthma, uncomplicated, R91.1 - Solitary pulmonary nodule, R91.8 - Other nonspecific abnormal finding of lung field Immunoglobulins,IgG IgA IgM Today J40 - Bronchitis, not specified as acute or chronic, J45.909 - Unspecified asthma, uncomplicated, R91.1 - Solitary pulmonary nodule Medications: New roflumilast (Daliresp) 500 mcg PO DAILY 30 tabs 6RF 30 days Coding Level of Care Code Est Pt Level 4 (05563) Complex EM visit Add On G2211 Diagnoses EDUARDO on CPAP G47.33; Z99.89 Chronic allergic rhinitis J30.9 Dyspnea on exertion R06.09 Dyspnea type: dyspnea on exertion Adrenal insufficiency E27.40 Bronchitis J40 Moderate persistent asthma without complication J45.40 Asthma severity: moderate Asthma persistence: persistent Asthma complication type: uncomplicated Pulmonary nodule R91.1 Time Spent (min) 18
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
== END 2025-06-08 11:23 | disposition home or self-care (01) ==
LOC: HO.HPS 10:50
PROVIDERS: PCP Pediatrics; Visit Provider Hospitalist
DX: G47.33 Obstructive sleep apnea (adult) (pediatric) (principal); Z99.89 Dependence on other enabling machines and devices; J30.9 Allergic rhinitis, unspecified; R06.09 Other forms of dyspnea; E27.40 Unspecified adrenocortical insufficiency; J40 Bronchitis, not specified as acute or chronic; J45.40 Moderate persistent asthma, uncomplicated; R91.1 Solitary pulmonary nodule
CPT/HCPCS: 99214; G2211

== ENCOUNTER 2025-06-08 10:49 | Outpatient (REF) | payer OTHER, SELFPAY ==
[2025-06-08 12:06] LABS: MANUAL DIFF FLAG NO
[2025-06-08 12:31] LABS: Hematocrit 40.6 % (42.0-52.0); Hemoglobin 13.3 g/dl (14.0-18.0); Imm Gran Abs Auto 0.17 X10*3/uL (0.00-0.03); Imm Gran Pct Auto 1.9 % (0.0-0.4); Lymphocytes Absolute Auto 2.6 X10*3/uL (1.2-4.9); Mean Corpuscular HGB Conc 32.8 g/dl (31.0-36.0); Mean Corpuscular Hemoglobin 31.1 pg (27.0-33.0); Mean Corpuscular Volume 94.9 fL (80.0-98.0); NRBC Abs Auto 0.000 X10*3/uL (0.0-0.012); NRBC Pct Auto 0.0 /100WBC (0.0-0.2); Platelet Count 164 X10*3/uL (160-400); Red Blood Count 4.28 X10*6/uL (4.60-5.80); White Blood Count 9.0 X10*3/uL (4.8-10.8)
[2025-06-08 13:06] LABS: Troponin-I High Sensitivity 5.2 ng/L (<3.5-35.0)
--- OUTSIDE RECORDS SUMMARY | 2025-06-08 14:44 | XMS_ITS | Clinical Summary ---
Author Organization [facility] Address [address] [place] [address] Phone Care Team Providers Care Lawnmower Repair Mechanic Name Role Phone Sumeet Richard MD Primary Care Provider [phone] Allergies Active Allergy Reactions Criticality Noted Date [...] BY MOUTH EVERY DAY AT BEDTIME Active budesonide-formo teroL (SYMBICORT) 160-4.5 mcg/actuation inhaler Inhale 2 Puffs [...] Take 1 Capsule by mouth daily. Active lidocaine 4 % patch Apply 1 [...] by mouth at bedtime as needed. Active hydrocortisone sod succinate (Solu-CORTEF) 100 mg recon soln injectionIndicat ions:Adrenal insufficiency (CMS/HCC V24) To inject 100 mg IM once daily As needed (emergency/very sick) 1 each 2 025 Active lisinopriL (PRINIVIL,ZESTRI L) 5 mg tablet Take 1 tablet (5 mg total) by mouth 1 (one) time each day. 90 tablet 1 025 Active diclofenac (VOLTAREN) 1 % topical gel APPLY GEL TOPICALLY TO AFFECTED AREA 4 TIMES DAILY DO NOT USE IF RASH OR TROUBLE BREATHING 024 Active clopidogreL (PLAVIX) 75 mg tablet Take 1 tablet (75 mg total) by mouth 1 (one) time each day. 025 Active cyclobenzaprine (FLEXERIL) 10 mg tablet 025 Active Arnuity Ellipta 100 mcg/actuation blister with device inhaler Inhale 1 puff by mouth 1 (one) time each day. 025 Active fluticasone HFA (Flovent HFA) 110 mcg/actuation inhaler Inhale 2 puffs by mouth 2 (two) times a day. Active levothyroxine (SYNTHROID, LEVOTHROID) 75 mcg tablet Take 1 tablet (75 mcg total) by mouth 1 (one) time each day. 025 Active loratadine (CLARITIN) 10 mg tablet Take 1 tablet (10 mg total) by mouth 1 (one) time each day. Active LORazepam (ATIVAN) 0.5 mg tablet Take 1 tablet (0.5 mg total) by mouth 2 (two) times a day if needed. Active mometasone-formo terol (DULERA 200) 200-5 mcg/actuation inhaler Inhale 2 puffs by mouth 2 (two) times a day. Active omeprazole (PriLOSEC) [address] capsule Take 1 capsule (20 mg total) by mouth 1 (one) time each day. Active rosuvastatin (CRESTOR) 10 mg tablet Take 1 tablet (10 mg total) by mouth 1 (one) time each day. Active blood sugar diagnostic (FreeStyle Lite Strips) test strip 1 Lancet by extracorporeal route 2 (two) times a day. Active sod bicarb-sod chlor-neti pot packet with rinse device NetiPot Sinus Wash, Dx sinusitis ICD-10 J01.90, See Instructions, # 1 each, Refills 0, Tot. Refills 0, Maintenance, NetiPot Sinus Wash, Dx sinusitis ICD-10 J01.90, 11/21/24 3:32:00 PM EDT, Supply, 168, cm, 11/21/24 14:53:00 EDT, Height, 84.6, kg, 07/19/24 13:34:00 EST, Dry Weight 025 Active azelastine (ASTELIN) 137 mcg (0.1 %) nasal spray Administer 2 sprays into each nostril 2 (two) times a day. Active acarbose (PRECOSE) 25 mg tablet Take 1 tablet (25 mg total) by mouth. Active hydrocortisone (CORTEF) 5 mg tablet Take 15mg in the morning and 5mg in the afternoon 360 tablet 1 Active blood sugar diagnostic (Contour Next Test Strips) test strip Use to monitor blood sugars upto 4x daily for Type II DM E11.9 200 each 3 025 2025 Active metoprolol tartrate (LOPRESSOR) 25 mg tablet Take 1 tablet by mouth twice daily 180 tablet 1 025 Active hydrocortisone (CORTEF) 5 mg tablet Take 2 tabs in AM and 1 tab at 2 pm 2024 Discontinued metoprolol tartrate (LOPRESSOR) 25 mg tablet Take 1 tablet by mouth twice daily 180 tablet 025 2024 Discontinued fludrocortisone (FLORINEF) 0.1 mg tablet Take 1 tablet by mouth once daily 90 tablet 025 2024 Discontinued metoprolol tartrate (LOPRESSOR) 25 mg tablet Take 1 tablet by mouth twice daily 180 tablet 025 2024 Discontinued hydrocortisone (CORTEF) 5 mg tablet TAKE 2 TABLETS BY MOUTH IN THE MORNING AND 1 TABELT AT 2PM 270 tablet 1 025 2024 Discontinued Active Problems Problem Noted Date Diagnosed Date Abnormal barium swallow 06/30/2024 Overview (06/30/2024): Narrowing at mid thoracic esophagus Adrenal insufficiency (CMS/[facility] V24) 12/18/2023 Chest pain 03/02/2023 Overview (06/30/2024): [...] 12/20/2017 COPD (chronic obstructive pu lmonary disease) ([facility] V24, [facility] V28) 12/19/2017 Encounters Date Type Department Care Team Description 05/26/[address] [phone] Pierce Harmon MD 05/25/2025 10:00 AM EDT Office Visit [address] [phone] Pierce Harmon MD Adrenal insufficiency ([facility] [place]24) (Primary Dx) 05/14/2025 Results Follow-Up [address] [phone] Pierce Harmon MD 05/04/2025 9:00 AM EDT Office Visit [address] [phone] Pierce Harmon MD Adrenal insufficiency ([facility] V24) (Primary Dx) from Last 3 Months Surgical History Surgery Date Site/Laterality Comments ANGIOPLASTY PROCEDURE: HISTORICAL ANGIOPLASTY; COMMENT: LAD ESOPHAGOGASTRODUODENOSCOPY 12/21/2021 PROCEDURE: NV EGD TRANSORAL BIOPSY SINGLE/MULTIPLE; COMMENT: normal including esoph biopsy Medical History Medical History Date Comments Hyperlipidemia 01/01/2018 DX:Hyperlipidemi a COPD (chronic obstructive pu lmonary disease) ([facility] V24, [facility] V28) 12/19/2017 DX:COPD (chronic o bstructive pulmonary disease) (HCC) Chronic hoarseness 12/20/2017 DX:Chronic ho arseness H/O [...] Sign Reading Time Taken Comments Blood Pressure 139/82 05/25/2025 9:58 AM EDT Pulse 69 05/25/2025 9:58 AM EDT Temperature 36.6 C (97.9 F) 05/04/2025 9:01 AM EDT Respiratory Rate 14 05/25/2025 9:58 AM EDT Oxygen Saturation 95% 08/21/2024 1:07 PM EST Inhaled Oxygen Concentration - - Weight 87.1 kg (192 lb) 05/25/2025 9:58 AM EDT Height 167.6 cm (5' 6 ) 05/25/2025 9:58 AM EDT Body Mass Index 30.99 05/25/2025 9:58 AM EDT Plan of Treatment Upcoming Encounters Date Type Department Care Team (Late st Contact Info) Description 08/25/2025 10:00 AM EST Office Visit Endocrinology - [address] [place] [address] Pierce Harmon MD [address] [place] [address] Health Maintenance Due Date Last Done Comments Colorectal Cancer Screening: Colonoscopy 1955 RSV Immunization Adult Patients (1 - Risk 50-74 years 1-dose series) 12/05/2007 Abdominal Aortic Aneurysm (AAA) Screen 07/10/2022 Cholesterol Screening (Lipid Panel) 07/10/2022 Hepatitis C Screening 07/10/2022 Medicare Annual Wellness Visit 07/10/2022 Social Influencers of Health Screening 07/10/2022 Falls Risk Assessment 2022 Depression Screening 08/06/2024 COVID-19 Vaccine ( season) 2025 05/19/2024, 01/15/2023, 08/22/2022, Additional history exists Influenza Vaccine (#1) 2025 , 08/30/2022, 06/14/2021, Additional history exists Hypertension/CHF/CAD Annual BMP Blood Test 05/05/2026 05/05/2025, 12/26/2018 DTaP,Tdap,and Td Vaccines (4 - Td or Tdap) 04/23/2028 04/23/2018, 05/20/2008, 08/08/2001 Zoster Vaccines Completed 12/29/2020, 08/06, 06/04/2013 Pneumococcal Vaccine: 50+ Years Completed 10/02/2022, 08/13/2012 HIB Vaccines Aged Out No longer eligi [...] Procedure Name Priority Date/Time Associated Diagnosis Comments 21-HYDROXYLASE ANTIBODY Routine 05/05/2025 10:38 AM EDT 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) COMPREHENSIVE METABOLIC PANEL Routine 05/05/2025 10:38 AM EDT Adrenal insufficiency ([facility] V24) PLASMA RENIN ACTIVITY Routine 05/05/2025 10:38 AM EDT Adrenal insufficiency ([facility] V24) from Last 3 Months Results * Plasma renin activity (05/05/2025 10:38 AM EDT) [facility] Signature RENIN ACTIVITY, PLASMA 0.922 0.167 - 5.380 ng/mL/hr 05/11/2025 12:05 PM EDT [facility] Blood Venous blood specimen / Unknown Venipuncture / Unknown 05/05/2025 10:38 AM EDT 05/05/2025 10:52 AM EDT Narrative [facility] - 05/11/2025 12:05 PM EDT Test(s) 132484-Rskqc Activity, Plasma was developed and its performance characteristics determined by [facility]. It has not been cleared or approved by the Food and Drug Administration. Performed at: 01 - [address] [id number] Digital Media Producer: Rafy Hopkins MD, Phone: [phone] Pierce Harmon MD LAB BLOOD ORDERABLES Final Result [facility] * 21-Hydroxylase antibody (05/05/2025 10:38 AM EDT) [facility] 21-Hydroxylase Ab Negative 025 9:33 PM EDT [facility] Comment: INTERPRETIVE INFORMATION: 21-Hydroxylase Autoantibodies, Serum The 21-Hydroxylase Autoantibody assay is intended for the qualitative determination of autoantibodies to steroid 21-hydroxylase in human serum. A positive result is indicative of primary adrenal insufficiency ([place] disease). Results should be interpreted within the context of clinical symptoms, including functional adrenal testing. Males with adrenal insufficiency and negative results for 21-hydroxylase autoantibodies should be screened for X-Linked Adrenoleukodystrophy (X-ALD) by ordering Very Long-Chain Branched Fatty Acids in Plasma (Metabacus Test Code [id number]). Performed By: [facility] [address] [place] [address] City Solicitor: Moses Kerr MD, PhD CLIA Number: [id number] Blood Venous blood specimen / Unknown Venipuncture / Unknown 05/05/2025 10:38 AM EDT 05/05/2025 10:51 AM EDT Pierce Harmon MD LAB BLOOD ORDERABLES Final Result [facility] [address] [place] [address] * (ABNORMAL) Comprehensive metabolic panel (05/05/2025 10:38 AM EDT) [facility] Sodium 142 133 - 145 mmol/L LAB CHEMISTRY METHOD 05/05/2025 11:35 AM EDT [facility] Potassium 3.8 3.5 - 5.5 mmol/L LAB CHEMISTRY METHOD 05/05/2025 11:35 AM EDT [facility] Chloride 112(H) 96 - 110 mmol/L LAB CHEMISTRY METHOD 05/05/2025 11:35 AM EDT [facility] CO2 26 21 - 32 mmol/L LAB CHEMISTRY METHOD 05/05/2025 11:35 AM [facility] Anion Gap 4 3 - 11 LAB CHEMISTRY METHOD 05/05/2025 11:35 AM [facility] Glucose 60(L) 70 - 100 mg/dL LAB CHEMISTRY METHOD 05/05/2025 11:35 AM [facility] BUN 16 5 - 25 mg/dL LAB CHEMISTRY METHOD 05/05/2025 11:35 AM [facility] Creatinine 1.03 0.70 - 1.30 mg/dL LAB CHEMISTRY METHOD 05/05/2025 11:35 AM [facility] eGFR 80 >=60 mL/min/1. 73m2 LAB CHEMISTRY METHOD 05/05/2025 11:35 AM [facility] Comment:Calculation based on the Chronic Kidney Disease Epidemiology Collaboration (CKD-EPI) equation refit without adjustment for race. BUN/Creatinine Ratio 15.5 LAB CHEMISTRY METHOD 05/05/2025 11:35 AM [facility] Calcium 9.0 8.5 - 10.5 mg/dL LAB CHEMISTRY METHOD 05/05/2025 11:35 AM [facility] AST (SGOT) 23 10 - 42 unit/L LAB CHEMISTRY METHOD 05/05/2025 11:35 AM [facility] ALT (SGPT) 34 10 - 60 unit/L LAB CHEMISTRY METHOD 05/05/2025 11:35 AM [facility] Alkaline Phosphatase 83 42 - 121 unit/L LAB CHEMISTRY METHOD 05/05/2025 11:35 AM [facility] Total Protein 6.2 6.0 - 8.0 g/dL LAB CHEMISTRY METHOD 05/05/2025 11:35 AM [facility] Albumin 3.6 3.2 - 5.0 g/dL LAB CHEMISTRY METHOD 05/05/2025 11:35 AM [facility] Total Bilirubin 0.6 0.0 - 1.4 mg/dL LAB CHEMISTRY METHOD 05/05/2025 11:35 AM EDT [facility] Blood Venous blood specimen / Unknown Venipuncture / Unknown 05/05/2025 10:38 AM EDT 05/05/2025 10:50 AM EDT us Pierce Harmon MD LAB BLOOD ORDERABLES Final Result [facility] [address] [place] [address], [place] [phone] from Last 3 Months Insurance [employer] MEDICARE Member Subscriber Plan / Payer (Ef fective 2023-Present) Name:ALFRED NOVOA Relation to Subscriber:Self Name:Alfred Gomez Payer ID:[id number] Group ID:[id number] Type:Not on file Address: [place] [facility] [place] [address] Care Teams Lawnmower Repair Mechanic Relationship Specialty Start Date End Date Sumeet Richard MD [address] [place] [phone] PCP - General Internal Medicine 12/08/21
--- OUTSIDE RECORDS SUMMARY | 2025-06-08 14:44 | XMS_ITS | Encounter Summary ---
Author Organization [facility] Address [address] [place] [address] Care Team Providers Care Vending Machine Host/Hostess Name Role Phone Sumeet Richard MD Primary Care Provider [phone] Reason for Visit * Reason Onset Date Comments PRIOR AUTH CONTOUR NEXT TEST STRIPS 05/26/2025 Encounter Details Date Type Department Care Team (Late st Contact Info) Description 05/26/2025 Telephone [facility] [place] [address], [place] [phone] Pierce Harmon MD [address] [place] [address] Social History Tobacco Use Types Packs/Day Years Used Date Smoking Tobacco: Former Cigarettes Smokeless Tobacco: Never Alcohol Use Standard Drinks/Week Comments No 0 (1 standard drink = 0.6 oz pur e alcohol) Sex and Gender Information Value Date Recorded Sex Assigned at Male 10/02/2023 6:19 PM EST Legal Sex Male 9:30 AM EST Gender Identity Male 10/02/2023 6:19 PM EST Sexual Orientation Straight 10/02/2023 6: 19 PM EST documented as of this encounter Progress Notes * Alta Dunlap MA - 05/27/2025 10:39 AM EDT PA FOR CONTOUR NEXT TEST denied * Alta Dunlap MA - 05/26/2025 1:02 PM EDT PA FOR CONTOUR NEXT TEST initiated with [facility] today with a Form clinicals notes printed and faxed . Dx E11.9 * Linda Puri - 05/26/2025 9:32 AM EDT Endocrine Call Primary endocrine provider: Dr. Pierce Harmon MD Is the endocrine provider in the office toady?: yes Who is calling? [facility] FA[employer]. If not the patient or parent/guardian please check for authorization to share/verbal release. Why is the person calling? Prior authorization. Medications or glucose meter supplies. Please routeto prior authorization pool (p [id number]). Which supply is the concern? PA FOR CONTOUR NEXT TEST STRIPSKEY#[id number] documented in this encounter Plan of Treatment Upcoming Encounters Date Type Department Care Team (Late st Contact Info) Description 08/25/2025 10:00 AM EST Office Visit Endocrinology - [place] [address] [place] [phone] Pierce Harmon MD [address] [place] [address] documented as of this encounter Visit Diagnoses Not on filedocumented in this encounter Care Teams Vending Machine Host/Hostess Relationship Specialty Start Date End Date Sumeet Richard MD [address] [place] [phone] PCP - General Internal Medicine 12/08/21 documented as of this encounter
[2025-06-14 13:58] LABS: Asperg fumigatus Precip Abs NEGATIVE (NEGATIVE); Micropoly faeni Abs NEGATIVE (NEGATIVE); Saccharo pora viridis Abs NEGATIVE (NEGATIVE); Thermo candidus Abs NEGATIVE (NEGATIVE)
== END 2025-06-08 10:50 | disposition home or self-care (01) ==
LOC: HO.LAB 10:49
PROVIDERS: PCP Pediatrics; Visit Provider Hospitalist
DX: G47.33 Obstructive sleep apnea (adult) (pediatric) (principal); J44.0 Chronic obstructive pulmonary disease with (acute) lower respiratory infection; J44.89 Other specified chronic obstructive pulmonary disease; J30.9 Allergic rhinitis, unspecified; E27.40 Unspecified adrenocortical insufficiency; J40 Bronchitis, not specified as acute or chronic; J45.40 Moderate persistent asthma, uncomplicated; R91.8 Other nonspecific abnormal finding of lung field; R91.1 Solitary pulmonary nodule; Z87.891 Personal history of nicotine dependence; Z99.89 Dependence on other enabling machines and devices; Z79.899 Other long term (current) drug therapy
CPT/HCPCS: 36415; 82784; 82785; 84484; 85025; 85652; 86331; 86606; 86609; 99212